=== PATIENT | female | born 1970 | race Caucasian/White ===

== ENCOUNTER 2016-12-28 08:52 | Emergency (ER) | payer BC ==
[2016-12-28 08:58] VITALS: BP 150/84
[2016-12-28] MEDS ORDERED: Pantoprazole 40 MG Vial IVPUSH ONE (09:19)
[2016-12-28] MEDS ORDERED: Sodium Chloride 0.9% 10 ML Syringe FLUSH PRN (09:28)
--- NOTE | 2016-12-28 09:32 | EDM.PDOC ---
[id number] Complaint: blood in stool Time Seen by Provider: 12/28/16 09:00 Source of Information: Reports: Patient - History of Present Illness INITIAL COMMENTS - FREE TEXT/NARRATIVE: Patient is a 46-year-old female who presents to the ER with history of nausea and vomiting she had 1 episodes at 9 PM and went back to the around 3 AM she woke up with diarrhea and bloody stools she has had a bloody stool every hour since that time her last bloody stool was at 8:30 AM she is currently being seen in the ER Onset: Sudden Onset Date: 12/27/16 Duration: Hour(s): Location: Reports: Other Quality: Reports: Other (Cramping from time to time) Improves with: Reports: None Worsens with: Reports: None - Related Data Allergies Allergy/AdvReac Type Severity Reaction Status Date / Time No Known Drug Allergies Allergy Cannot Verified 12/28/16 08:56 Remember Home Meds: Home Meds Anastrozole [Arimidex] 1 mg PO DAILY 10/20/15 [History] Omeprazole 40 mg PO BIDAC #30 cap.cr 12/28/16 [Rx] Past Medical History Immunologic History: Reports: Other (See Below) Other Immunologic History: Current chemotherapy treatment Oncologic (Cancer) History: Reports: Breast - Past Surgical History Female Surgical History: Reports: Breast Biopsy, Oophorectomy Other Female Surgeries/Procedures: Bilateral Oophorectomy. Breast Lumpectomy Oncologic Surgical History: Reports: Biopsy of Breast, Lumpectomy Social & Family History - Tobacco Use Smoking Status *Q: Never Smoker Second Hand Smoke Exposure: No - Recreational Drug Use Recreational Drug Use: No - Living Situation & Occupation Living situation: Reports: with Significant Other, with Family ED ROS GENERAL - Review of Systems Review Of Systems: See Below Constitutional: Reports: Decreased Appetite HEENT: Reports: No Symptoms Respiratory: Reports: No Symptoms Cardiovascular: Reports: No Symptoms Endocrine: Reports: No Symptoms GI/Abdominal: Reports: Abdominal Pain (Cramping from time to time), Bloody Stool , Diarrhea, Vomiting Musculoskeletal: Reports: No Symptoms Skin: Reports: No Symptoms Neurological: Reports: No Symptoms Psychiatric: Reports: No Symptoms ED EXAM, GENERAL - Physical Exam Exam: See Below General Appearance: Alert, WD/WN, No Apparent Distress Ears: Normal External Exam, Normal Canal, Hearing Grossly Normal, Normal TMs Nose: Normal Inspection, Normal Mucosa, No Blood Throat/Mouth: Normal Inspection Head: Atraumatic, Normocephalic Neck: Normal Inspection, Supple, Non-Tender, Full Range of Motion Respiratory/Chest: No Respiratory Distress, Lungs Clear, Normal Breath Sounds, No Accessory Muscle Use, Chest Non-Tender Cardiovascular: Normal Peripheral Pulses, Regular Rate, Rhythm, No Edema, No Gallop, No JVD, No Murmur, No Rub GI/Abdominal: Normal Bowel Sounds (Hyperactive). No: Distended, Guarding, Rebound, Tender (Female) Exam: Deferred Rectal (Female) Exam: Deferred Extremities: Normal Inspection, Normal Range of Motion, Non-Tender, Normal Capillary Refill, No Pedal Edema Neurological: Alert, Oriented, CN II-XII Intact, Normal Cognition, Normal Gait, Normal Reflexes, No Motor/Sensory Deficits Psychiatric: Normal Affect, Normal Mood Skin Exam: Warm, Dry, Intact, Normal Color, No Rash Course - Vital Signs Last Recorded V/S: Last Vital Signs Temp 98.0 F 12/28/16 08:57 Pulse 105 H 12/28/16 08:57 Resp 20 12/28/16 08:57 BP 150/84 H 12/28/16 08:57 Pulse Ox 100 12/28/16 08:57 - Orders/Labs/Meds Orders: Active Orders 24 hr Category Date Time Status Peripheral IV Care [RC] . DIRECTED Care 12/28/16 09:28 Active HEMOGLOBIN [HEME] Stat Lab 12/28/16 12:00 Ordered Sodium Chloride 0.9% [Saline Flush] Med 12/28/16 09:28 Active 10 ml FLUSH ASDIRECTED PRN Peripheral IV Insertion Adult [OM.PC] Routine Oth 12/28/16 09:28 Ordered Medication Orders Sodium Chloride (Saline Flush) 10 ml FLUSH ASDIRECTED PRN PRN Reason: Keep Vein Open Labs: Laboratory Tests 12/28/16 12/28/16 Range/Units 09:15 09:15 WBC 5.8 (4.0-10.2) K/uL RBC 4.57 (3.77-5.09) M/uL Hgb 14.9 D (11.7-15.5) g/dL Hct 41.3 (34.0-46.0) % MCV 90.4 (84.0-98.0) fL MCH 32.6 (28.2-33.3) pg MCHC 36.1 H (31.7-36.0) g/dL RDW 12.3 (11.2-14.1) % Plt Count 153 (150-350) K/uL Neut % (Auto) 71.8 (45.0-80.0) % Lymph % (Auto) 18.2 (10.0-50.0) % Wake % (Auto) 9.2 (2.0-14.0) % Eos % (Auto) 0.5 (0.0-5.0) % Baso % (Auto) 0.3 (0.0-2.0) % Neut # (Auto) 4.13 (1.40-7.00) K/uL Lymph # (Auto) 1.05 (0.50-3.50) K/uL Wake # (Auto) 0.53 (0.00-1.00) K/uL Eos # (Auto) 0.03 (0.00-0.50) K/uL Baso # (Auto) 0.02 (0.00-0.20) K/uL Sodium 142 (136-145) mmol/L Potassium 3.7 (3.5-5.1) mmol/L Chloride 104 (98-107) mmol/L Carbon Dioxide 27.3 (21.0-32.0) mmol/L BUN 13 (7-18) mg/dL Creatinine 0.89 (0.51-1.17) mg/dL Est Cr Clr Drug Dosing 61.80 mL/min Estimated GFR (MDRD) > 60 mL/min Glucose 104 (74-106) mg/dL Calcium 9.3 (8.5-10.1) mg/dL Meds: Medications Generic Name Dose Route Start Last Admin Trade Name Freq PRN Reason Stop Dose Admin Sodium Chloride 10 ml 12/28/16 09:28 Saline Flush FLUSH ASDIRECTED PRN Keep Vein Open Discontinued Medications Generic Name Dose Route Start Last Admin Trade Name Freq PRN Reason Stop Dose Admin Pantoprazole Sodium 40 mg 12/28/16 09:19 12/28/16 09:29 Protonix Iv IVPUSH 12/28/16 09:20 40 mg ONETIME ONE Administration Departure - Departure Time of Disposition: 12:30 Disposition: Home, Self-Care 01 Clinical Impression: Diarrhea, Bloody stool - Discharge Information Prescriptions: Omeprazole 40 mg PO BIDAC #30 cap.cr Referrals: Misbah Turner NP [Primary Care Provider] - (Follow up with Misbah or Dr. Harrington as needed in the clinic. ) Robby Amos MD [Physician] - (Dr. Amos nurse will call you to set up an upper and lower GI scope for Saturday12-31-16 at [facility] in [place], [place] ) Forms: ED Department Discharge Additional Instructions: Dr. Amos nurse will call you to set up an upper and lower GI scope on Saturday in [place] for follow up. If you have any other questions, issues, or concerns , please call the ER and talk to Dr. Cortez. - Problem List & Annotations (1) Bloody stool SNOMED Code(s): 833648480 Code(s): K92.1 - MELENA Status: Acute Current Visit: Yes - Problem List Review Problem List Initiated/Reviewed/Updated: Yes - My Orders Last 24 Hours: My Active Orders 12/28/16 09:28 Peripheral IV Care [RC] . DIRECTED Sodium Chloride 0.9% [Saline Flush] 10 ml FLUSH ASDIRECTED PRN Peripheral IV Insertion Adult [OM.PC] Routine 12/28/16 12:00 HEMOGLOBIN [HEME] Stat - Assessment/Plan Last 24 Hours: My Active Orders 12/28/16 09:28 Peripheral IV Care [RC] . DIRECTED Sodium Chloride 0.9% [Saline Flush] 10 ml FLUSH ASDIRECTED PRN Peripheral IV Insertion Adult [OM.PC] Routine 12/28/16 12:00 HEMOGLOBIN [HEME] Stat Plan: Dr. Amos nurse will call patient to set up an upper and lower GI scope on Saturday in [place] for follow up. Will re check hgb at noon. If patient stable, that will be the plan.
[2016-12-28 09:40] LABS: CHLORIDE,CL 104 mmol/L (98-107); SODIUM,NA 142 mmol/L (136-145)
== END 2016-12-28 12:54 | disposition home or self-care (01) ==
LOC: LL.ED 08:52
DX: K92.1 Melena (principal); R19.7 Diarrhea, unspecified; Z90.722 Acquired absence of ovaries, bilateral; Z79.899 Other long term (current) drug therapy; Z85.3 Personal history of malignant neoplasm of breast
CPT/HCPCS: 36415; 80048; 85018; 85025; 96374; 99283; C9113

== ENCOUNTER 2018-07-16 08:10 | Observation (INO) | payer BC ==
[2018-07-16] MEDS ORDERED: metroNIDAZOLE/Normal Saline 500 MG in Premix Bag 1 BAG IV ONE (08:38)
[2018-07-16] MEDS ORDERED: cefTRIAXone 1 GM in Sodium Chloride 0.9% 100 ML IV ONE (08:38)
[2018-07-16] MEDS ORDERED: Famotidine 20 MG/2 ML SDV IVPUSH ONE (08:38)
[2018-07-16] MEDS ORDERED: Lactated Ringers 1,000 ML IV ONE (08:38)
[2018-07-16] MEDS ORDERED: Ondansetron 4 MG/2 ML SDV IVPUSH ONE (08:38)
[2018-07-16] MEDS ORDERED: Pantoprazole 40 MG Vial IVPUSH ONE (08:38)
--- NOTE | 2018-07-16 08:38 | EDM.PDOC ---
ED HPI GENERAL MEDICAL PROBLEM - General Chief Complaint: Abdominal Pain Stated Complaint: abd pain Time Seen by Provider: 07/16/18 08:30 Source of Information: Reports: Patient, Old Records ([facility] chart/EMR including [place] EMR), Other ([place] EMR) History Limitations: Reports: No Limitations - History of Present Illness INITIAL COMMENTS - FREE TEXT/NARRATIVE: The patient drove herself to the emergency room via private automobile for evaluation of progressive moderate gross hematochezia and diarrhea with stools on an hourly basis since 11 PM. She did have some previous nausea and dry heaves with no true emesis. Her hematochezia did stop between 4:30?7 AM however soon returned later this morning. Note that the patient did just recently returned from [place] on 07/13 with medication of about one week. She denies any known exposure to infection, food poisoning, etc. She has not received her influenza booster this year. She denies any pain or nausea at this time with previous 9/10 diffuse abdominal cramping. No recent history of heartburn, melena , or any food intolerance, including fatty foods, etc.. The patient also denies any gross hematuria, colic, or other UTI symptoms. The patient denies any chest pain/pressure, heart flutter, dizziness, orthostasis, orthopnea, diaphoresis, paresthesias, recent decreased exercise tolerance, or any other anginal-type symptoms. The patient also denies any recent fever, cough, wheezing, dyspnea, etc.. She has not taken any medications for her above symptoms to this point. Onset: Gradual Onset Date: 07/15/18 Onset Time: 23:00 Duration: Getting Worse, Intermittent Location: Reports: Abdomen. Denies: Head, Face, Chest, Back, Pelvis, Upper Extremity, Left, Upper Extremity, Right, Lower Extremity, Left, Lower Extremity , Right, Radiates to Quality: Reports: Same as Previous Episode, Other (Cramping) Severity: Severe Improves with: Reports: None Worsens with: Reports: None Context: Reports: Other (As above). Denies: Sick Contact, Trauma Associated Symptoms: Reports: Nausea/Vomiting. 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 Denies: Cataract, Glaucoma, Hard of Hearing, Impaired Vision, Macular Degeneration, Otitis Media, Retinal Detachment , Sinusitis Cardiovascular History: Reports: High Cholesterol, Other (See Below). Denies: Afib, Aneurysm, Arrhythmia, Blood Clots/VTE/DVT, CAD, Heart Murmur, Hypertension , PR, PVD, Syncope Other Cardiovascular History: Mild hyperlipidemia with no current medical therapy required. Respiratory History: Reports: Intubation, Previous. Denies: Asthma, Bronchitis , Recurrent, COPD, Intubation, Difficult, PE, Pneumonia, Recurrent, Pneumothorax , Sleep Apnea, TB Gastrointestinal History: Reports: GERD, GI Bleed, Other (See Below). Denies: Bowel Obstruction, Celiac Disease, Cholelithiasis, Chronic Constipation, Chronic Diarrhea, Colon Polyp, Fecal Incontinence, Gastritis, Hepatitis, Hiatal Hernia, Inflammatory Bowel Disease, Irritable Bowel Syndrome, Jaundice, Pancreatitis, PUD Other Gastrointestinal History: GI bleed secondary to mild colitis of unknown etiology on 12/28/16 with workup as below. Genitourinary History: Reports: None. 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 Denies: Endometriosis, Spontaneous : 3 Para: 3 LMP (Approximate): Other (See Below) Other ELECTRICAL SOFTWARE ENGINEER History: Amenorrhea since chemotherapy. Previous ruptured right ovarian cyst at time of appendicitis as below. Right Sided breast cancer as below. Musculoskeletal History: Reports: Arthritis, Osteoarthritis, Osteoporosis, Other (See Below). Denies: Amputation, Back Pain, Chronic, Fracture, Fibromyalgia, Gout, Neck Pain, Chronic, RA, SLE Other Musculoskeletal History: Osteopenia secondary to chemotherapy. Neurological History: Reports: None. Denies: Cerebral Aneurysms, Concussion, CVA, Headaches, Chronic, Head Trauma, Migraines, MS, Neuropathy, Diabetic, Neuropathy, Peripheral, Parkinson's, Seizure, TIA Psychiatric History: Reports: Anxiety, Depression. Denies: Abuse, Victim of, ADD, ADHD, Addiction, Psych Hospitalization(s), PTSD, Suicide Attempt, Suicidal Ideation Endocrine/Metabolic History: Reports: Obesity/BMI 30+, Osteopenia, Osteoporosis. Denies: Diabetes, Gestational, Diabetes, Type I, Diabetes, Type II, Diabetes Mellitus, Type 3c, Hypothyroidism, IDDM Hematologic History: Reports: Other (See Below). Denies: Anemia, Blood Transfusion(s), Iron Deficiency Other Hematologic History: Neutropenia secondary to chemotherapy. Immunologic History: Reports: Immunosuppression, Other (See Below). Denies: AIDS, HIV, SLE Other Immunologic History: Current Arimidex chemotherapy previous radiation and chemotherapy for her breast cancer. Oncologic (Cancer) History: Reports: Breast, Other (See Below). Denies: Basal Cell Carcinoma, Cervix, Colon, Hodgkin's Lymphoma, Leukemia, Lymphoma, Malignant Melanoma, Metastatic, Non-Hodgkin's Lymphoma, Ovarian, Squamous Cell Carcinoma, Uterine Other Oncologic History: Right-sided stage I invasive ductal breast cancer estrogen receptor positive and HER 2 positive with subsequent chemotherapy and radiation therapy with completion in early 2017. Dermatologic History: Reports: None. Denies: Eczema, Psoriasis - Infectious Disease History Infectious Disease History: Reports: Chicken Pox, Scarlet Fever. Denies: C- Difficile, Measles, Meningitis, Mononucleosis, MRSA, Mumps, Pertussis (Whooping Cough), Rheumatic Fever, Rubella, Shingles, VRE - Past Surgical History Head Surgeries/Procedures: Reports: None HEENT Surgical History: Reports: Adenoidectomy, Oral Surgery, Tonsillectomy, Other (See Below). Denies: Cataract Surgery, Eye Surgery, Laser Surgery, LASIK , Myringotomy w Tube(s), Naso-Sinus Surgery Other HEENT Surgeries/Procedures: Tonsillectomy and adenoidectomy at age 17 with re-cauterization required. [place] teeth extraction 4 at about age 15. Cardiovascular Surgical History: Reports: None. Denies: Varicose Respiratory Surgical History: Reports: None. Denies: Thoracentesis GI Surgical History: Reports: Appendectomy, Colonoscopy, EGD, Other (See Below) . Denies: Cholecystectomy, Hernia, Abdominal, Hernia, Inguinal, Hernia Repair/ Other, Polypectomy Other GI Surgeries/Procedures: Appendectomy at age 38. EGD and colonoscopy on with mild colitis and secondary lower GI bleed as above. Female Surgical History: Reports: Breast Biopsy, Salpingo-Oophorectomy. Denies: Section, D&C, Hysterectomy, Tubal Ligation Other Female Surgeries/Procedures: Diagnostic laparoscopic abdominal/pelvic examination with bilateral salpingo-oophorectomy and concomitant right breast lumpectomy and sentinel lymph node biopsies on 07/29/15. Endocrine Surgical History: Reports: None. Denies: Thyroid Biopsy Neurological Surgical History: Reports: None. Denies: C-Spine, Discectomy, Laminectomy, Lumbar Spine, Sacral Spine, Spinal Fusion, Thoracic Spine, Vertebroplasty Musculoskeletal Surgical History: Reports: None. Denies: Arthroscopic Procedure , Carpal Tunnel, Ganglion Cyst, Joint Replacement, ORIF, Shoulder Surgery Oncologic Surgical History: Reports: Biopsy of Breast, Bone Marrow Aspiration, Lumpectomy, Other (See Below) Other Oncologic Surgeries/Procedures: Bone marrow needle aspiration and biopsy including flow cytometry on 08/06/16. Right breast biopsy on 03/05/18. Otherwise right-sided lumpectomy and laparoscopic abdominal and pelvic evaluations on 07/28 as above. Dermatological Surgical History: Reports: Skin Biopsy, Other (See Below) Other Dermatological Surgeries/Procedures: Excision of benign chest wall inclusion cyst on 12/29/15. - Past Imaging History Past Imaging History: Reports: Cardiac Echo (Last echocardiogram on 02/02/16 with ejection fraction of 55% with previous evaluations on recent Y416 on ), CAT Scan (CT of the sinuses on 07/25/07), DEXA Scan (DEXA scan on 04/01/17 with complete total body DEXA scan on 03/22/15.), Mammogram (Last mammogram on ), MRI (MRI of the chest on 12/12/15.), Ultrasound (Pelvic ultrasound on and 05/16/10. Right breast ultrasounds on 03/05/18, 09/03/17, and 02/23/15. ), Venous Doppler (Doppler studies of the left arm on 05/10/15.) Social & Family History - Family History HEENT: Reports: None. Denies: Glaucoma, Macular Degeneration, Retinal Detachment Cardiac: Reports: None. Denies: Afib, Aneurysm, Arrhythmia, Blood Clots/VTE/DVT , CAD, Heart Murmur, High Cholesterol, Hypertension, PR, PVD/COD, Syncope Respiratory: Reports: None. Denies: Asthma, COPD, PE, Pneumothorax, Sleep Apnea GI: Reports: None. Denies: Celiac Disease, Cholelithiasis, Colon Polyps, GERD, GI bleed, Inflammatory Bowel Disease, Irritable Bowel Syndrome : Reports: None. Denies: Renal Calculus, Renal Disease/Insufficiency OBGYN: Reports: Recurrent Spontaneous . Denies: Endometriosis Other OBGYN Family History: Mother with recurrent SABs. Musculoskeletal: Reports: None. Denies: Arthritis, Gout, Osteoarthritis, RA, SLE Neurological: Reports: None. Denies: Alzheimers Disease, Cerebral Aneurysms, CVA, Dementia, Migraines, MS, Parkinson's, Seizure, TIA Psychiatric: Reports: Anxiety, Depression, Other (See Below). Denies: Abuse, Victim of, ADD, ADHD, Psych Hospitalization(s), PTSD, Suicide Attempt Other Psychiatric Family History: Anxiety depression disorder in patient's father Endocrine/Metabolic: Reports: None. Denies: Diabetes, Gestational, Diabetes, Type I, Diabetes, type II, Diabetes Mellitus, Type 3c, Hypothyroidism, IDDM Hematologic: Reports: None. Denies: Anemia, SLE Immunologic: Reports: None. Denies: AIDS, HIV, SLE Dermatologic: Reports: None. Denies: Eczema, Psoriasis Oncologic: Reports: Breast, Metastatic, Other (See Below). Denies: Cervix, Colon, Hodgkin's Lymphoma, Leukemia, Lymphoma, Non-Hodgkin's Lymphoma Other Oncologic Family History: Mother with fatal metastatic lung cancer at age 50 with history of tobacco use however possible suspicion of breast cancer. Maternal grandfather with fatal esophageal cancer in his 80s of history of tobacco use. Maternal retinoblastoma fatal at age 9. - Tobacco Use Smoking Status *Q: Never Smoker Tobacco Use Within Last Twelve Months: No Used Tobacco, but Quit: No Smoking Cessation Information Provided To Patient: Yes Second Hand Smoke Exposure: Yes - Caffeine Use Caffeine Use: Reports: Soda (1 soda per month). Denies: Coffee, Energy Drinks, Tea - Alcohol Use Alcohol Use History: Yes Days Per Week of Alcohol Use: 3 Number of Drinks Per Day: 1 Number of Drinks Per Day Comment: Usually wine. No previous DWIs, problems with alcohol abuse, etc. Total Drinks Per Week: 3 Alcohol Use in Last Twelve Months: Yes Alcohol Use Frequency: Weekly - Recreational Drug Use Recreational Drug Use: No Drug Use in Last 12 Months: No Recreational Drug Type: Denies: Amphetamines (Speed), Cocaine, Heroin, Inhalants (Glues, Solvents, Aerosols), LSD (Acid), Marijuana/Hashish, Methamphetamine, Morphine - Sexual History Sexual History: Reports: Sexually Active - Living Situation & Occupation Living situation: Reports: (1993. 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 ED EXAM, GI/ABD - Physical Exam Exam: See Below Exam Limited By: No Limitations General Appearance: Alert, WD/WN, No Apparent Distress. No: Anxious Eyes: Bilateral: Normal Appearance (No nystagmus), EOMI (PERRLA) Ears: Normal External Exam, Normal Canal, Hearing Grossly Normal, Normal TMs Nose: Normal Inspection, Normal Mucosa, No Blood Throat/Mouth: Normal Inspection, Normal Lips, Normal Teeth, Normal Gums, Normal Oropharynx, Normal Voice, No Airway Compromise. No: Dysphagia, Perioral Cyanosis Head: Atraumatic, Normocephalic. No: Facial Swelling, Facial Tenderness, Sinus Tenderness Neck: Normal Inspection, Supple, Non-Tender, Full Range of Motion. No: Carotid Bruit, Lymphadenopathy (L), Lymphadenopathy (R), Thyromegaly Respiratory/Chest: No Respiratory Distress, Lungs Clear, Normal Breath Sounds, No Accessory Muscle Use, Chest Non-Tender. No: Pleural Rub, Retractions Cardiovascular: Normal Peripheral Pulses, Regular Rate, Rhythm, No Edema, No Gallop, No JVD, No Murmur, No Rub, Tachycardia (Resolved tachycardia time of my exam). No: Gallop/S3, Gallop/S4, Friction Rub GI/Abdominal Exam: Normal Bowel Sounds, Soft, Non-Tender, No Organomegaly, No Distention, No Abnormal Bruit, No Mass, Pelvis Stable. No: Guarding, Rigid, Rebound, Tender (Female) Exam: Deferred Rectal (Female) Exam: Normal Rectal Tone, Bloody Stool, Heme + Stool (With brown stool however mild gross hematochezia with no evidence of rectal fissure, significant hemorrhoidal bleeding, etc. by rectal speculum exam), Hemorrhoids ( Grade 2 internal/external hemorrhoids). No: Black Stool, Decreased Rectal Tone , Fecal Impaction, Perirectal Abscess, Rectal Fissure, Tenderness (No Zoran space tenderness) Back Exam: Normal Inspection, Full Range of Motion. No: CVA Tenderness (L), CVA Tenderness (R), Muscle Spasm Extremities: Normal Inspection, Normal Range of Motion, Non-Tender, No Pedal Edema, Normal Capillary Refill. No: Saw's Sign Neurological: Alert, Oriented, CN II-XII Intact, Normal Cognition, Normal Gait, Normal Reflexes (Negative Babinski's), No Motor/Sensory Deficits Psychiatric: Normal Affect, Normal Mood Skin Exam: Warm, Dry, Intact, Normal Color, No Rash. No: Diaphoretic, Ecchymosis, Jaundice, Pallor, Petechiae, Wound/Incision Lymphatic: No Adenopathy Course - Vital Signs Last Recorded V/S: Last Vital Signs Temp 36.2 C 07/16/18 08:21 Pulse 79 07/16/18 09:45 Resp 18 07/16/18 09:45 BP 119/75 07/16/18 09:45 Pulse Ox 100 07/16/18 09:45 Vital Signs - 24 hr 07/16/18 07/16/18 08:21 09:45 Temperature [ 36.2 C Temporal] Pulse, 107 H 79 Peripheral [ Pulse Oximetry] Respiratory 20 18 Rate Blood Pressure 129/79 119/75 [Right Upper Arm] O2 Sat by Pulse 98 100 Oximetry - Orders/Labs/Meds Orders: Active Orders 24 hr Category Date Time Status Peripheral IV Care [RC] . DIRECTED Care 07/16/18 08:39 Active Peripheral IV Care [RC] . DIRECTED Care 07/16/18 08:44 Active Nothing Per Oral Diet [DIET] Diet 07/16/18 Breakfast Active Abdomen Pelvis w Cont [CT] Stat Exams 07/16/18 08:39 Taken Abdomen Series w Chest 1V [CR] Stat Exams 07/16/18 08:39 Taken H PYLORI STOOL ANTIGEN [MREF] Urgent Lab 07/16/18 08:39 Ordered Sodium Chloride 0.9% [Saline Flush] Med 07/16/18 08:38 Active 10 ml FLUSH ASDIRECTED PRN Sodium Chloride 0.9% [Saline Flush] Med 07/16/18 08:44 Active 10 ml FLUSH ASDIRECTED PRN Obtain Past Medical Record [OM.PC] Urgent Oth 07/16/18 08:39 Active Peripheral IV Insertion Adult [OM.PC] Routine Oth 07/16/18 08:44 Ordered Peripheral IV Insertion Adult [OM.PC] Stat Oth 07/16/18 08:39 Ordered Resuscitation Status Stat Resus Stat 07/16/18 08:38 Ordered Medication Orders Sodium Chloride (Saline Flush) 10 ml FLUSH ASDIRECTED PRN PRN Reason: Keep Vein Open Last Admin: 07/16/18 09:35 Dose: 10 ml Sodium Chloride (Saline Flush) 10 ml FLUSH ASDIRECTED PRN PRN Reason: Keep Vein Open Last Admin: 07/16/18 09:36 Dose: 10 ml Labs: Laboratory Tests 07/16/18 07/16/18 07/16/18 Range/Units 08:39 08:40 08:40 WBC 7.2 (4.0-10.2) K/uL RBC 4.41 (3.77-5.09) M/uL Hgb 14.5 (11.7-15.5) g/dL Hct 40.8 (34.0-46.0) % MCV 92.5 (84.0-98.0) fL MCH 32.9 (28.2-33.3) pg MCHC 35.5 (31.7-36.0) g/dL RDW 12.3 (11.2-14.1) % Plt Count 116 L (150-350) K/uL Neut % (Auto) 85.5 H (45.0-80.0) % Lymph % (Auto) 5.5 L (10.0-50.0) % Crook % (Auto) 8.4 (2.0-14.0) % Eos % (Auto) 0.6 (0.0-5.0) % Baso % (Auto) 0.0 (0.0-2.0) % Neut # (Auto) 6.19 (1.40-7.00) K/uL Lymph # (Auto) 0.40 L (0.50-3.50) K/uL [place] # (Auto) 0.61 (0.00-1.00) K/uL Eos # (Auto) 0.04 (0.00-0.50) K/uL Baso # (Auto) 0.00 (0.00-0.20) K/uL PT 10.0 (9.5-12.0) SEC INR 0.9 APTT 23.4 (21.0-31.3) SEC Sodium (136-145) mmol/L Potassium (3.5-5.1) mmol/L Chloride (98-107) mmol/L Carbon Dioxide (21.0-32.0) mmol/L BUN (7-18) mg/dL Creatinine (0.51-1.17) mg/dL Est Cr Clr Drug Dosing mL/min Estimated GFR (MDRD) mL/min Glucose (74-106) mg/dL Lactic Acid (0.4-2.0) mmol/L Uric Acid (2.6-7.2) mg/dL Calcium (8.5-10.1) mg/dL Magnesium (1.8-2.4) mg/dL Total Bilirubin (0.2-1.0) mg/dL AST (15-37) U/L ALT (12-78) U/L Alkaline Phosphatase (46-116) IU/L Total Protein (6.4-8.2) g/dL Albumin (3.4-5.0) g/dL Amylase 57 (25-115) U/L Lipase (73-393) U/L 07/16/18 07/16/18 Range/Units 08:40 08:40 WBC (4.0-10.2) K/uL RBC (3.77-5.09) M/uL Hgb (11.7-15.5) g/dL Hct (34.0-46.0) % MCV (84.0-98.0) fL MCH (28.2-33.3) pg MCHC (31.7-36.0) g/dL RDW (11.2-14.1) % Plt Count (150-350) K/uL Neut % (Auto) (45.0-80.0) % Lymph % (Auto) (10.0-50.0) % Crook % (Auto) (2.0-14.0) % Eos % (Auto) (0.0-5.0) % Baso % (Auto) (0.0-2.0) % Neut # (Auto) (1.40-7.00) K/uL Lymph # (Auto) (0.50-3.50) K/uL [place] # (Auto) (0.00-1.00) K/uL Eos # (Auto) (0.00-0.50) K/uL Baso # (Auto) (0.00-0.20) K/uL PT (9.5-12.0) SEC INR APTT (21.0-31.3) SEC Sodium 139 (136-145) mmol/L Potassium 4.2 (3.5-5.1) mmol/L Chloride 102 (98-107) mmol/L Carbon Dioxide 25.1 (21.0-32.0) mmol/L BUN 17 (7-18) mg/dL Creatinine 0.81 (0.51-1.17) mg/dL Est Cr Clr Drug Dosing 69.50 mL/min Estimated GFR (MDRD) > 60 mL/min Glucose 116 H (74-106) mg/dL Lactic Acid 1.4 (0.4-2.0) mmol/L Uric Acid 4.3 (2.6-7.2) mg/dL Calcium 9.1 (8.5-10.1) mg/dL Magnesium 1.9 (1.8-2.4) mg/dL Total Bilirubin 0.9 (0.2-1.0) mg/dL AST 31 (15-37) U/L ALT 56 (12-78) U/L Alkaline Phosphatase 120 H (46-116) IU/L Total Protein 7.5 (6.4-8.2) g/dL Albumin 4.3 (3.4-5.0) g/dL Amylase (25-115) U/L Lipase 168 (73-393) U/L Microbiology 07/16/18 08:45 Stool Occult Blood (REINA) - Final Stool / Feces Hemoccult positive Meds: Medications Generic Name Dose Route Start Last Admin Trade Name Freq PRN Reason Stop Dose Admin Sodium Chloride 10 ml 07/16/18 08:38 02/27/19 09:35 Saline Flush FLUSH 10 ml ASDIRECTED PRN Administration Keep Vein Open Sodium Chloride 10 ml 07/16/18 08:44 07/16/18 09:36 Saline Flush FLUSH 10 ml ASDIRECTED PRN Administration Keep Vein Open Discontinued Medications Generic Name Dose Route Start Last Admin Trade Name Freq PRN Reason Stop Dose Admin Famotidine 40 mg 07/16/18 08:38 07/16/18 09:39 Pepcid IVPUSH 07/16/18 08:39 40 mg ONETIME ONE Administration Ceftriaxone Sodium 1 gm/ 100 mls @ 200 mls/hr 07/16/18 08:38 07/16/18 09:32 Sodium Chloride IV 07/16/18 09:07 200 mls/hr ONETIME ONE Administration Lactated Ringer's 1,000 mls @ 999 mls/hr 07/16/18 08:38 07/16/18 09:36 Ringers, Lactated IV 07/16/18 09:38 999 mls/hr .BOLUS ONE Administration Metronidazole 500 mg/ Premix 100 mls @ 100 mls/hr 07/16/18 08:38 07/16/18 09: 40 IV 07/16/18 09:37 100 mls/hr ONETIME ONE Administration Iopamidol 100 ml 07/16/18 09:30 07/16/18 09:16 Isovue-300 (61%) IVPUSH 07/16/18 09:31 100 ml ONETIME ONE Administration Ondansetron HCl 4 mg 07/16/18 08:38 07/16/18 09:41 Zofran IVPUSH 07/16/18 08:39 Not Given ONETIME ONE Pantoprazole Sodium 40 mg 07/16/18 08:38 07/16/18 09:35 Protonix Iv IVPUSH 07/16/18 08:39 40 mg ONETIME ONE Administration - Radiology Interpretation Free Text/Narrative:: Acute abdominal x-rays shows mild nonspecific bowel gaseous pattern and moderate stool with no free air, fluid levels, ileus, obstruction, cardiomegaly , CHF, pulmonary infiltrates, pneumothorax, etc. Note surgical clips in the right chest wall region consistent with previous breast cancer surgery as above. Telephone consultation at 09:55 AM with the radiology department at [facility]. Preliminary verbal report shows no evidence of acute abnormalities or etiology of her probable lower GI bleed. Final report received prior to admission. Departure - Departure Time of Disposition: 10:45 Disposition: Refer to Observation Condition: Good Clinical Impression: Lower GI bleed, Peptic reflux disease, Mixed anxiety depressive disorder Breast cancer Qualifiers: Breast location: upper inner quadrant of breast Estrogen receptor status: positive Patient sex: female Laterality: right Qualified Code(s): C50.211 - Malignant neoplasm of upper-inner quadrant of right female breast Hyperlipidemia Qualifiers: Hyperlipidemia type: mixed hyperlipidemia Qualified Code(s): E78.2 - Mixed hyperlipidemia - Discharge Information *PRESCRIPTION DRUG MONITORING PROGRAM REVIEWED*: Not Applicable *COPY OF PRESCRIPTION DRUG MONITORING REPORT IN PATIENT JONATAN: Not Applicable - Problem List & Annotations (1) Lower GI bleed SNOMED Code(s): 92311981 Code(s): K92.2 - GASTROINTESTINAL HEMORRHAGE, UNSPECIFIED Status: Acute Priority: High Current Visit: Yes Onset Date: 07/16/18 Annotation/Comment: : Probable lower GI bleed of uncertain etiology however cannot rule out possible colitis secondary to recent travel to [place] as above. Note the patient did have similar symptoms in 2017 with mild colitis by EGD and colonoscopy at that time. Vital signs and clinical exam are stable at time of admission. Various therapeutic options were discussed with the patient, who does agree to placement in this facility in observation status and planned repeat EGD and colonoscopy tomorrow. Abdominal assessments with vitals. No significant hematochezia during emergency room care with CBC to be repeated in about 3 hours and repeat blood work in the a.m. Standard bowel prep for EGD and colonoscopy as above. Further GI workup, etc. depending on clinical course. Note history of breast cancer as above. Note IV Rocephin and IV Flagyl initiated in the emergency room as GI prophylaxis. Significant anemia or leukocytosis at this time. (2) Peptic reflux disease SNOMED Code(s): 346117842 Code(s): K21.9 - GASTRO-ESOPHAGEAL REFLUX DISEASE WITHOUT ESOPHAGITIS Status: Chronic Priority: Medium Current Visit: Yes Annotation/Comment:: High-dose IV Pepcid and IV Protonix given as GI prophylaxis. Patient has not had any problems with her GERD recently with no current medications required. (3) Breast cancer SNOMED Code(s): 293719604 Code(s): C50.919 - MALIGNANT NEOPLASM OF UNSP SITE OF UNSPECIFIED FEMALE BREAST Status: Ruled-out Priority: Medium Current Visit: Yes Annotation/ Comment:: History of breast cancer as above with no previous metastases. EGD and colonoscopy as above as precautionary measure and as per recommendations from radiologist. Note CT scan results as above. Note current Arimdex therapy with completion of chemotherapy and radiation therapy as above. No evidence of recurrence by patient's monthly self breast examinations with patient closely followed by the breast clinic at [facility] as above. Qualifiers: Breast location: upper inner quadrant of breast Estrogen receptor status: positive Patient sex: female Laterality: right Qualified Code(s): C50.211 - Malignant neoplasm of upper-inner quadrant of right female breast; Z17.0 - Estrogen receptor positive status [ER+] (4) Mixed anxiety depressive disorder SNOMED Code(s): 134933991 Code(s): F41.8 - OTHER SPECIFIED ANXIETY DISORDERS Status: Chronic Priority: Medium Current Visit: Yes Annotation/Comment:: Stable by history (5) Hyperlipidemia SNOMED Code(s): 83060624 Code(s): E78.5 - HYPERLIPIDEMIA, UNSPECIFIED Status: Chronic Priority: Medium Current Visit: Yes Annotation/Comment:: Diet-controlled by patient history. Qualifiers: Hyperlipidemia type: mixed hyperlipidemia Qualified Code(s): E78.2 - Mixed hyperlipidemia - Problem List Review Problem List Initiated/Reviewed/Updated: Yes - My Orders Last 24 Hours: My Active Orders 07/16/18 08:38 Sodium Chloride 0.9% [Saline Flush] 10 ml FLUSH ASDIRECTED PRN Resuscitation Status Stat 07/16/18 08:39 Peripheral IV Care [RC] . DIRECTED Abdomen Pelvis w Cont [CT] Stat Abdomen Series w Chest 1V [CR] Stat H PYLORI STOOL ANTIGEN [MREF] Urgent Obtain Past Medical Record [OM.PC] Urgent Peripheral IV Insertion Adult [OM.PC] Stat 07/16/18 08:44 Peripheral IV Care [RC] . DIRECTED Sodium Chloride 0.9% [Saline Flush] 10 ml FLUSH ASDIRECTED PRN Peripheral IV Insertion Adult [OM.PC] Routine 07/16/18 Breakfast Nothing Per Oral Diet [DIET] - Assessment/Plan Admission H&P: Please use this note as an admission H&P Last 24 Hours: My Active Orders 07/16/18 08:38 Sodium Chloride 0.9% [Saline Flush] 10 ml FLUSH ASDIRECTED PRN Resuscitation Status Stat 07/16/18 08:39 Peripheral IV Care [RC] . DIRECTED Abdomen Pelvis w Cont [CT] Stat Abdomen Series w Chest 1V [CR] Stat H PYLORI STOOL ANTIGEN [MREF] Urgent Obtain Past Medical Record [OM.PC] Urgent Peripheral IV Insertion Adult [OM.PC] Stat 07/16/18 08:44 Peripheral IV Care [RC] . DIRECTED Sodium Chloride 0.9% [Saline Flush] 10 ml FLUSH ASDIRECTED PRN Peripheral IV Insertion Adult [OM.PC] Routine 07/16/18 Breakfast Nothing Per Oral Diet [DIET] Assessment:: As above Plan: As above. Extensive precautions were given to the patient, who is in agreement with the treatment plan. The patient's condition is stable enough for observation status and general supervision.
[2018-07-16] MEDS ORDERED: Sodium Chloride 0.9% 10 ML Syringe FLUSH PRN (08:44)
[2018-07-16 08:59] LABS: CHLORIDE,CL 102 mmol/L (98-107); SODIUM,NA 139 mmol/L (136-145)
[2018-07-16] MEDS ORDERED: Iopamidol 612 MG/ML 100 ML Bottle IVPUSH ONE (09:30)
[2018-07-16] MEDS: Sodium Chloride 0.9% 10 ML Syringe FLUSH PRN ×3 (09:35→19:16)
[2018-07-16] MEDS ORDERED: Bisacodyl 5 MG Tab PO ONE (12:00)
[2018-07-16] MEDS: Polyethylene Glycol 3350 Powder 238 GM Bot PO SCH ×10 (12:45→16:08)
[2018-07-16] MEDS: Potassium Chloride 20 MEQ Tab.ER PO SCH ×2 (12:46→17:22)
[2018-07-16] MEDS: Lactated Ringers 1,000 ML IV SCH (12:47)
[2018-07-16] MEDS: Acetaminophen 325 MG Tab PO PRN ×2 (12:50→19:14)
[2018-07-16] MEDS ORDERED: Ondansetron 4 MG/2 ML SDV IVPUSH PRN (15:00)
[2018-07-16] MEDS ORDERED: Temazepam 15 MG Cap PO PRN (20:00)
[2018-07-16] MEDS: cefTRIAXone 1 GM in Sodium Chloride 0.9% 100 ML IV SCH (20:14)
[2018-07-16] MEDS: Pantoprazole 40 MG Vial IVPUSH SCH (20:14)
[2018-07-16] MEDS: Sodium Chloride 0.9% 10 ML Syringe FLUSH SCH ×2 (20:57)
[2018-07-16] MEDS: metroNIDAZOLE/Normal Saline 500 MG in Premix Bag 1 BAG IV SCH (21:00)
[2018-07-17] MEDS: Lactated Ringers 1,000 ML IV SCH ×3 (00:27→12:24)
[2018-07-17] MEDS: metroNIDAZOLE/Normal Saline 500 MG in Premix Bag 1 BAG IV SCH ×3 (05:18→21:05)
[2018-07-17 08:22] LABS: CHLORIDE,CL 107 mmol/L (98-107); SODIUM,NA 141 mmol/L (136-145)
--- NOTE | 2018-07-17 08:26 | PCM.PN ---
- General Info Date of Service: 07/17/18 Admission Dx/Problem (Free Text): Lower GI bleed Functional Status: Reports: Pain Controlled, Tolerating Diet, Ambulating, Urinating. Denies: New Symptoms, Incentive Spirometry Pain Score: 0 - Review of Systems General: Reports: No Symptoms. Denies: Fever, Weakness, Fatigue, Malaise, Chills, Night Sweats, Appetite (Appetite good) HEENT: Reports: No Symptoms. Denies: Ear Pain, Eye Pain, Headaches, Post Nasal Drip, Sinus Congestion, Sore Throat, Rhinitis, Visual Changes Pulmonary: Reports: No Symptoms. Denies: Shortness of Breath, Pleuritic Chest Pain, Cough, Sputum, Hemoptysis, Wheezing Cardiovascular: Reports: No Symptoms. Denies: Chest Pain, Palpitations, Dyspnea on Exertion, Orthopnea, Edema, Lightheadedness Gastrointestinal: Reports: Diarrhea (From bowel preparation). Denies: Abdominal Pain, Constipation, Decreased Appetite, Difficulty Swallowing, Flatus , Hematochezia, Melena, Nausea, Vomiting Genitourinary: Reports: No Symptoms. Denies: Dysuria, Frequency, Burning, Pain , Urgency, Hematuria, Flank Pain Musculoskeletal: Reports: No Symptoms. Denies: Neck Pain, Shoulder Pain, Arm Pain, Back Pain, Leg Pain Skin: Reports: No Symptoms. Denies: Diaphoresis, Bruising Neurological: Reports: No Symptoms. Denies: Confusion, Numbness, Paresthesia, Tingling, Weakness Psychiatric: Reports: No Symptoms. Denies: Confusion, Depression, Anxiety, Agitation - Patient Data Vitals - Most Recent: Last Vital Signs Temp 36.8 C 07/17/18 04:00 Pulse 62 07/17/18 04:00 Resp 16 07/17/18 04:00 BP 110/70 07/17/18 04:00 Pulse Ox 96 07/17/18 04:00 Vital Signs - 24 hr 07/16/18 07/16/18 07/16/18 09:45 11:16 11:19 Temperature [ Oral] Temperature [ Temporal] Pulse, 79 Peripheral [ Pulse Oximetry] Respiratory 18 Rate Blood Pressure [Left Upper Arm ] Blood Pressure 119/75 [Right Upper Arm] O2 Sat by Pulse 100 100 100 Oximetry 07/16/18 07/16/18 07/16/18 12:00 16:00 20:00 Temperature [ 36.8 C 36.6 C Oral] Temperature [ 36.3 C Temporal] Pulse, 67 78 73 Peripheral [ Pulse Oximetry] Respiratory 17 20 16 Rate Blood Pressure 124/61 139/84 123/76 [Left Upper Arm ] Blood Pressure [Right Upper Arm] O2 Sat by Pulse 100 98 98 Oximetry 07/17/18 07/17/18 00:00 04:00 Temperature [ 36.6 C 36.8 C Oral] Temperature [ Temporal] Pulse, 75 62 Peripheral [ Pulse Oximetry] Respiratory 16 16 Rate Blood Pressure 111/62 110/70 [Left Upper Arm ] Blood Pressure [Right Upper Arm] O2 Sat by Pulse 96 96 Oximetry Weight - Most Recent: 70.216 kg I&O - Last 24 Hours: Intake & Output 07/16/18 07/17/18 07/17/18 22:59 06:59 14:59 Intake Total 2655 1134 Output Total 850 350 Balance 1805 784 Imaging Impressions - Last 24 Hours: sfdc solution architect shows normal sinus rhythm with heart rate in the 60s to 70s with no ectopy or arrhythmia. Lab Results Last 24 Hours: Laboratory Results - last 24 hr 07/16/18 07/16/18 07/16/18 Range/Units 08:39 08:40 08:40 WBC 7.2 (4.0-10.2) K/uL RBC 4.41 (3.77-5.09) M/uL Hgb 14.5 (11.7-15.5) g/dL Hct 40.8 (34.0-46.0) % MCV 92.5 (84.0-98.0) fL MCH 32.9 (28.2-33.3) pg MCHC 35.5 (31.7-36.0) g/dL RDW 12.3 (11.2-14.1) % Plt Count 116 L (150-350) K/uL Neut % (Auto) 85.5 H (45.0-80.0) % Lymph % (Auto) 5.5 L (10.0-50.0) % [place] % (Auto) 8.4 (2.0-14.0) % Eos % (Auto) 0.6 (0.0-5.0) % Baso % (Auto) 0.0 (0.0-2.0) % Neut # (Auto) 6.19 (1.40-7.00) K/uL Lymph # (Auto) 0.40 L (0.50-3.50) K/uL [place] # (Auto) 0.61 (0.00-1.00) K/uL Eos # (Auto) 0.04 (0.00-0.50) K/uL Baso # (Auto) 0.00 (0.00-0.20) K/uL PT 10.0 (9.5-12.0) SEC INR 0.9 APTT 23.4 (21.0-31.3) SEC Sodium (136-145) mmol/L Potassium (3.5-5.1) mmol/L Chloride (98-107) mmol/L Carbon Dioxide (21.0-32.0) mmol/L BUN (7-18) mg/dL Creatinine (0.51-1.17) mg/dL Est Cr Clr Drug Dosing mL/min Estimated GFR (MDRD) mL/min Glucose (74-106) mg/dL Lactic Acid (0.4-2.0) mmol/L Uric Acid (2.6-7.2) mg/dL Calcium (8.5-10.1) mg/dL Magnesium (1.8-2.4) mg/dL Total Bilirubin (0.2-1.0) mg/dL AST (15-37) U/L ALT (12-78) U/L Alkaline Phosphatase (46-116) IU/L Total Protein (6.4-8.2) g/dL Albumin (3.4-5.0) g/dL Amylase 57 (25-115) U/L Lipase (73-393) U/L Specimen Type Urine Color Urine Appearance Urine pH (5.0-9.0) Ur Specific [place] (1.005-1.030) Urine Protein (NEGATIVE) mg/dL Urine Glucose (UA) (NEGATIVE) mg/dL Urine Ketones (NEGATIVE) mg/dL Urine Occult Blood (NEGATIVE) Urine Nitrite (NEGATIVE) Urine Bilirubin (NEGATIVE) Urine Urobilinogen (0.2-1.0) E.U./dL Ur Leukocyte Esterase (NEGATIVE) Urine RBC /HPF Urine WBC /HPF Ur Epithelial Cells /LPF Urine Bacteria (NONE TO FEW) /HPF 07/16/18 07/16/18 07/16/18 Range/Units 08:40 08:40 13:03 WBC (4.0-10.2) K/uL RBC (3.77-5.09) M/uL Hgb (11.7-15.5) g/dL Hct (34.0-46.0) % MCV (84.0-98.0) fL MCH (28.2-33.3) pg MCHC (31.7-36.0) g/dL RDW (11.2-14.1) % Plt Count (150-350) K/uL Neut % (Auto) (45.0-80.0) % Lymph % (Auto) (10.0-50.0) % [place] % (Auto) (2.0-14.0) % Eos % (Auto) (0.0-5.0) % Baso % (Auto) (0.0-2.0) % Neut # (Auto) (1.40-7.00) K/uL Lymph # (Auto) (0.50-3.50) K/uL [place] # (Auto) (0.00-1.00) K/uL Eos # (Auto) (0.00-0.50) K/uL Baso # (Auto) (0.00-0.20) K/uL PT (9.5-12.0) SEC INR APTT (21.0-31.3) SEC Sodium 139 (136-145) mmol/L Potassium 4.2 (3.5-5.1) mmol/L Chloride 102 (98-107) mmol/L Carbon Dioxide 25.1 (21.0-32.0) mmol/L BUN 17 (7-18) mg/dL Creatinine 0.81 (0.51-1.17) mg/dL Est Cr Clr Drug Dosing 69.50 mL/min Estimated GFR (MDRD) > 60 mL/min Glucose 116 H (74-106) mg/dL Lactic Acid 1.4 (0.4-2.0) mmol/L Uric Acid 4.3 (2.6-7.2) mg/dL Calcium 9.1 (8.5-10.1) mg/dL Magnesium 1.9 (1.8-2.4) mg/dL Total Bilirubin 0.9 (0.2-1.0) mg/dL AST 31 (15-37) U/L ALT 56 (12-78) U/L Alkaline Phosphatase 120 H (46-116) IU/L Total Protein 7.5 (6.4-8.2) g/dL Albumin 4.3 (3.4-5.0) g/dL Amylase (25-115) U/L Lipase 168 (73-393) U/L Specimen Type Urinvoid Urine Color Yellow Urine Appearance Clear Urine pH 7.0 (5.0-9.0) Ur Specific [place] 1.015 (1.005-1.030) Urine Protein Negative (NEGATIVE) mg/dL Urine Glucose (UA) Negative (NEGATIVE) mg/dL Urine Ketones Negative (NEGATIVE) mg/dL Urine Occult Blood Small H (NEGATIVE) Urine Nitrite Negative (NEGATIVE) Urine Bilirubin Negative (NEGATIVE) Urine Urobilinogen 0.2 (0.2-1.0) E.U./dL Ur Leukocyte Esterase Negative (NEGATIVE) Urine RBC 0-5 /HPF Urine WBC Not seen /HPF Ur Epithelial Cells Rare /LPF Urine Bacteria Rare (NONE TO FEW) /HPF 07/16/18 07/17/18 Range/Units 14:05 07:10 WBC 5.4 3.6 L (4.0-10.2) K/uL RBC 4.02 3.80 (3.77-5.09) M/uL Hgb 13.3 12.5 (11.7-15.5) g/dL Hct 37.4 36.1 (34.0-46.0) % MCV 93.0 95.0 (84.0-98.0) fL MCH 33.1 32.9 (28.2-33.3) pg MCHC 35.6 34.6 (31.7-36.0) g/dL RDW 12.1 12.3 (11.2-14.1) % Plt Count 130 L 112 L (150-350) K/uL Neut % (Auto) 77.1 63.6 (45.0-80.0) % Lymph % (Auto) 10.4 23.2 (10.0-50.0) % [place] % (Auto) 11.2 10.1 (2.0-14.0) % Eos % (Auto) 1.1 2.8 (0.0-5.0) % Baso % (Auto) 0.2 0.3 (0.0-2.0) % Neut # (Auto) 4.13 2.27 (1.40-7.00) K/uL Lymph # (Auto) 0.56 0.83 (0.50-3.50) K/uL [place] # (Auto) 0.60 0.36 (0.00-1.00) K/uL Eos # (Auto) 0.06 0.10 (0.00-0.50) K/uL Baso # (Auto) 0.01 0.01 (0.00-0.20) K/uL PT (9.5-12.0) SEC INR APTT (21.0-31.3) SEC Sodium (136-145) mmol/L Potassium (3.5-5.1) mmol/L Chloride (98-107) mmol/L Carbon Dioxide (21.0-32.0) mmol/L BUN (7-18) mg/dL Creatinine (0.51-1.17) mg/dL Est Cr Clr Drug Dosing mL/min Estimated GFR (MDRD) mL/min Glucose (74-106) mg/dL Lactic Acid (0.4-2.0) mmol/L Uric Acid (2.6-7.2) mg/dL Calcium (8.5-10.1) mg/dL Magnesium (1.8-2.4) mg/dL Total Bilirubin (0.2-1.0) mg/dL AST (15-37) U/L ALT (12-78) U/L Alkaline Phosphatase (46-116) IU/L Total Protein (6.4-8.2) g/dL Albumin (3.4-5.0) g/dL Amylase (25-115) U/L Lipase (73-393) U/L Specimen Type Urine Color Urine Appearance Urine pH (5.0-9.0) Ur Specific [place] (1.005-1.030) Urine Protein (NEGATIVE) mg/dL Urine Glucose (UA) (NEGATIVE) mg/dL Urine Ketones (NEGATIVE) mg/dL Urine Occult Blood (NEGATIVE) Urine Nitrite (NEGATIVE) Urine Bilirubin (NEGATIVE) Urine Urobilinogen (0.2-1.0) E.U./dL Ur Leukocyte Esterase (NEGATIVE) Urine RBC /HPF Urine WBC /HPF Ur Epithelial Cells /LPF Urine Bacteria (NONE TO FEW) /HPF Laboratory Tests 07/16/18 07/16/18 07/16/18 Range/Units 08:39 08:40 08:40 WBC 7.2 (4.0-10.2) K/uL RBC 4.41 (3.77-5.09) M/uL Hgb 14.5 (11.7-15.5) g/dL Hct 40.8 (34.0-46.0) % MCV 92.5 (84.0-98.0) fL MCH 32.9 (28.2-33.3) pg MCHC 35.5 (31.7-36.0) g/dL RDW 12.3 (11.2-14.1) % Plt Count 116 L (150-350) K/uL Neut % (Auto) 85.5 H (45.0-80.0) % Lymph % (Auto) 5.5 L (10.0-50.0) % [place] % (Auto) 8.4 (2.0-14.0) % Eos % (Auto) 0.6 (0.0-5.0) % Baso % (Auto) 0.0 (0.0-2.0) % Neut # (Auto) 6.19 (1.40-7.00) K/uL Lymph # (Auto) 0.40 L (0.50-3.50) K/uL [place] # (Auto) 0.61 (0.00-1.00) K/uL Eos # (Auto) 0.04 (0.00-0.50) K/uL Baso # (Auto) 0.00 (0.00-0.20) K/uL PT 10.0 (9.5-12.0) SEC INR 0.9 APTT 23.4 (21.0-31.3) SEC Sodium (136-145) mmol/L Potassium (3.5-5.1) mmol/L Chloride (98-107) mmol/L Carbon Dioxide (21.0-32.0) mmol/L BUN (7-18) mg/dL Creatinine (0.51-1.17) mg/dL Est Cr Clr Drug Dosing mL/min Estimated GFR (MDRD) mL/min Glucose (74-106) mg/dL Lactic Acid (0.4-2.0) mmol/L Uric Acid (2.6-7.2) mg/dL Calcium (8.5-10.1) mg/dL Magnesium (1.8-2.4) mg/dL Total Bilirubin (0.2-1.0) mg/dL AST (15-37) U/L ALT (12-78) U/L Alkaline Phosphatase (46-116) IU/L Total Protein (6.4-8.2) g/dL Albumin (3.4-5.0) g/dL Amylase 57 (25-115) U/L Lipase (73-393) U/L Specimen Type Urine Color Urine Appearance Urine pH (5.0-9.0) Ur Specific [place] (1.005-1.030) Urine Protein (NEGATIVE) mg/dL Urine Glucose (UA) (NEGATIVE) mg/dL Urine Ketones (NEGATIVE) mg/dL Urine Occult Blood (NEGATIVE) Urine Nitrite (NEGATIVE) Urine Bilirubin (NEGATIVE) Urine Urobilinogen (0.2-1.0) E.U./dL Ur Leukocyte Esterase (NEGATIVE) Urine RBC /HPF Urine WBC /HPF Ur Epithelial Cells /LPF Urine Bacteria (NONE TO FEW) /HPF 07/16/18 07/16/18 07/16/18 Range/Units 08:40 08:40 13:03 WBC (4.0-10.2) K/uL RBC (3.77-5.09) M/uL Hgb (11.7-15.5) g/dL Hct (34.0-46.0) % MCV (84.0-98.0) fL MCH (28.2-33.3) pg MCHC (31.7-36.0) g/dL RDW (11.2-14.1) % Plt Count (150-350) K/uL Neut % (Auto) (45.0-80.0) % Lymph % (Auto) (10.0-50.0) % [place] % (Auto) (2.0-14.0) % Eos % (Auto) (0.0-5.0) % Baso % (Auto) (0.0-2.0) % Neut # (Auto) (1.40-7.00) K/uL Lymph # (Auto) (0.50-3.50) K/uL [place] # (Auto) (0.00-1.00) K/uL Eos # (Auto) (0.00-0.50) K/uL Baso # (Auto) (0.00-0.20) K/uL PT (9.5-12.0) SEC INR APTT (21.0-31.3) SEC Sodium 139 (136-145) mmol/L Potassium 4.2 (3.5-5.1) mmol/L Chloride 102 (98-107) mmol/L Carbon Dioxide 25.1 (21.0-32.0) mmol/L BUN 17 (7-18) mg/dL Creatinine 0.81 (0.51-1.17) mg/dL Est Cr Clr Drug Dosing 69.50 mL/min Estimated GFR (MDRD) > 60 mL/min Glucose 116 H (74-106) mg/dL Lactic Acid 1.4 (0.4-2.0) mmol/L Uric Acid 4.3 (2.6-7.2) mg/dL Calcium 9.1 (8.5-10.1) mg/dL Magnesium 1.9 (1.8-2.4) mg/dL Total Bilirubin 0.9 (0.2-1.0) mg/dL AST 31 (15-37) U/L ALT 56 (12-78) U/L Alkaline Phosphatase 120 H (46-116) IU/L Total Protein 7.5 (6.4-8.2) g/dL Albumin 4.3 (3.4-5.0) g/dL Amylase (25-115) U/L Lipase 168 (73-393) U/L Specimen Type Urinvoid Urine Color Yellow Urine Appearance Clear Urine pH 7.0 (5.0-9.0) Ur Specific [place] 1.015 (1.005-1.030) Urine Protein Negative (NEGATIVE) mg/dL Urine Glucose (UA) Negative (NEGATIVE) mg/dL Urine Ketones Negative (NEGATIVE) mg/dL Urine Occult Blood Small H (NEGATIVE) Urine Nitrite Negative (NEGATIVE) Urine Bilirubin Negative (NEGATIVE) Urine Urobilinogen 0.2 (0.2-1.0) E.U./dL Ur Leukocyte Esterase Negative (NEGATIVE) Urine RBC 0-5 /HPF Urine WBC Not seen /HPF Ur Epithelial Cells Rare /LPF Urine Bacteria Rare (NONE TO FEW) /HPF 07/16/18 07/17/18 07/17/18 Range/Units 14:05 07:10 07:10 WBC 5.4 3.6 L (4.0-10.2) K/uL RBC 4.02 3.80 (3.77-5.09) M/uL Hgb 13.3 12.5 (11.7-15.5) g/dL Hct 37.4 36.1 (34.0-46.0) % MCV 93.0 95.0 (84.0-98.0) fL MCH 33.1 32.9 (28.2-33.3) pg MCHC 35.6 34.6 (31.7-36.0) g/dL RDW 12.1 12.3 (11.2-14.1) % Plt Count 130 L 112 L (150-350) K/uL Neut % (Auto) 77.1 63.6 (45.0-80.0) % Lymph % (Auto) 10.4 23.2 (10.0-50.0) % [place] % (Auto) 11.2 10.1 (2.0-14.0) % Eos % (Auto) 1.1 2.8 (0.0-5.0) % Baso % (Auto) 0.2 0.3 (0.0-2.0) % Neut # (Auto) 4.13 2.27 (1.40-7.00) K/uL Lymph # (Auto) 0.56 0.83 (0.50-3.50) K/uL [place] # (Auto) 0.60 0.36 (0.00-1.00) K/uL Eos # (Auto) 0.06 0.10 (0.00-0.50) K/uL Baso # (Auto) 0.01 0.01 (0.00-0.20) K/uL PT (9.5-12.0) SEC INR APTT (21.0-31.3) SEC Sodium 141 (136-145) mmol/L Potassium 4.1 (3.5-5.1) mmol/L Chloride 107 (98-107) mmol/L Carbon Dioxide 26.6 (21.0-32.0) mmol/L BUN 7 (7-18) mg/dL Creatinine 0.78 (0.51-1.17) mg/dL Est Cr Clr Drug Dosing 72.17 mL/min Estimated GFR (MDRD) > 60 mL/min Glucose 111 H (74-106) mg/dL Lactic Acid (0.4-2.0) mmol/L Uric Acid (2.6-7.2) mg/dL Calcium 8.5 (8.5-10.1) mg/dL Magnesium (1.8-2.4) mg/dL Total Bilirubin 0.5 (0.2-1.0) mg/dL AST 60 H (15-37) U/L ALT 80 H (12-78) U/L Alkaline Phosphatase 100 (46-116) IU/L Total Protein 6.2 L (6.4-8.2) g/dL Albumin 3.4 (3.4-5.0) g/dL Amylase (25-115) U/L Lipase (73-393) U/L Specimen Type Urine Color Urine Appearance Urine pH (5.0-9.0) Ur Specific [place] (1.005-1.030) Urine Protein (NEGATIVE) mg/dL Urine Glucose (UA) (NEGATIVE) mg/dL Urine Ketones (NEGATIVE) mg/dL Urine Occult Blood (NEGATIVE) Urine Nitrite (NEGATIVE) Urine Bilirubin (NEGATIVE) Urine Urobilinogen (0.2-1.0) E.U./dL Ur Leukocyte Esterase (NEGATIVE) Urine RBC /HPF Urine WBC /HPF Ur Epithelial Cells /LPF Urine Bacteria (NONE TO FEW) /HPF Microbiology 07/16/18 08:45 Stool / Feces Stool Occult Blood ([facility]) - Final Hemoccult positive. Stool specimens collected for culture and sensitivity and H. pylori antigen with results pending Urine set up for culture and sensitivity. [facility] Results Last 24 Hours: Microbiology 07/16/18 08:45 Stool Occult Blood ([facility]) - Final Stool / Feces Med Orders - Current: Current Medications Acetaminophen (Tylenol) 650 mg PO Q4H PRN PRN Reason: Pain Last Admin: 07/16/18 19:14 Dose: 650 mg Anastrozole (Arimidex) 1 mg PO DAILY [facility] Citalopram Hydrobromide (Celexa) 20 mg PO DAILY [facility] Famotidine (Pepcid) 20 mg IVPUSH Q12H [facility] Ceftriaxone Sodium 1 gm/ (Sodium Chloride) 100 mls @ 200 mls/hr IV Q12H [facility] Last Admin: 07/16/18 20:14 Dose: 200 mls/hr Metronidazole 500 mg/ Premix 100 mls @ 100 mls/hr IV Q8H [facility] Last Admin: 07/17/18 05:18 Dose: 100 mls/hr Lactated Ringer's (Ringers, Lactated) 1,000 mls @ 100 mls/hr IV ASDIRECTED [facility] Last Admin: 07/17/18 00:27 Dose: 100 mls/hr Ondansetron HCl (Zofran) 4 mg IVPUSH Q6H PRN PRN Reason: Nausea/Vomiting Last Admin: 07/16/18 19:15 Dose: 4 mg Pantoprazole Sodium (Protonix Iv) 40 mg IVPUSH Q12H [facility] Last Admin: 07/16/18 20:14 Dose: 40 mg Potassium Chloride (Klor-Con M20) 20 meq PO TID [facility] Stop: 07/17/18 12:00 Last Admin: 07/16/18 17:22 Dose: 20 meq Sodium Chloride (Saline Flush) 10 ml FLUSH ASDIRECTED PRN PRN Reason: Keep Vein Open Last Admin: 07/16/18 19:16 Dose: 10 ml Sodium Chloride (Saline Flush) 10 ml FLUSH Q12HR [facility] Last Admin: 07/16/18 20:57 Dose: 10 ml Sodium Chloride (Saline Flush) 10 ml FLUSH Q12HR [facility] Last Admin: 07/16/18 20:57 Dose: 10 ml Temazepam (Restoril) 15 mg PO DAILY@2000 PRN PRN Reason: Insomnia Discontinued Medications Bisacodyl (Dulcolax) 10 mg PO ONETIME ONE Stop: 07/16/18 12:01 Last Admin: 07/16/18 12:46 Dose: 10 mg Famotidine (Pepcid) 40 mg IVPUSH ONETIME ONE Stop: 07/16/18 08:39 Last Admin: 07/16/18 09:39 Dose: 40 mg Ceftriaxone Sodium 1 gm/ (Sodium Chloride) 100 mls @ 200 mls/hr IV ONETIME ONE Stop: 07/16/18 09:07 Last Admin: 07/16/18 09:32 Dose: 200 mls/hr Lactated Ringer's (Ringers, Lactated) 1,000 mls @ 999 mls/hr IV .BOLUS ONE Stop: 07/16/18 09:38 Last Admin: 07/16/18 09:36 Dose: 999 mls/hr Metronidazole 500 mg/ Premix 100 mls @ 100 mls/hr IV ONETIME ONE Stop: 07/16/18 09:37 Last Admin: 07/16/18 09:40 Dose: 100 mls/hr Metronidazole 500 mg/ Premix 100 mls @ 100 mls/hr IV Q8H [facility] Iopamidol (Isovue-300 (61%)) 100 ml IVPUSH ONETIME ONE Stop: 07/16/18 09:31 Last Admin: 07/16/18 09:16 Dose: 100 ml Ondansetron HCl (Zofran) 4 mg IVPUSH ONETIME ONE Stop: 07/16/18 08:39 Last Admin: 07/16/18 09:41 Dose: Not Given Pantoprazole Sodium (Protonix Iv) 40 mg IVPUSH ONETIME ONE Stop: 07/16/18 08:39 Last Admin: 07/16/18 09:35 Dose: 40 mg Polyethylene Glycol (Miralax) 238 gm PO Q30M [facility] Stop: 07/16/18 16:31 Last Admin: 07/16/18 16:08 Dose: 1 dose Sodium Chloride (Saline Flush) 10 ml FLUSH ASDIRECTED PRN PRN Reason: Keep Vein Open Last Admin: 07/16/18 09:36 Dose: 10 ml - Exam Quality Assessment: DVT Prophylaxis. No: Supplemental Oxygen, Central Line/PICC , Urine Catheter, Skin Breakdown, Restraints General: Alert, Oriented, Cooperative, No Acute Distress HEENT: Pupils Equal, Pupils Reactive, EOMI, Mucous Membr. Moist/[place] Neck: Supple, Trachea Midline, No JVD, No Thyromegaly, +2 Carotid Pulse wo Bruit. No: Lymphadenopathy Lungs: Clear to Auscultation, Normal Respiratory Effort. No: Rub Cardiovascular: Regular Rate, Regular Rhythm, No Murmurs. No: Gallops, Rubs GI/Abdominal Exam: Normal Bowel Sounds, Soft, Non-Tender, No Organomegaly, No Distention, No Abnormal Bruit, No Mass. No: Guarding (Female) Exam: Deferred Back Exam: Normal Inspection, Full Range of Motion. No: CVA Tenderness (L), CVA Tenderness (R), Muscle Spasm Extremities: Normal Inspection, Normal Range of Motion, Non-Tender, No Pedal Edema, Normal Capillary Refill. No: Saw's Sign Peripheral Pulses: 2+: Radial (L), Radial (R), Dorsalis Pedis (L), Dorsalis Pedis (R) Skin: Warm, Dry, Intact. No: Ecchymosis Neurological: No New Focal Deficit, Other (No clinical orthostasis) Psy/Mental Status: Alert, Normal Affect, Normal Mood. No: Depressed, Agitated, Hallucinations, Withdrawal Symptoms - Problem List & Annotations (1) Lower GI bleed SNOMED Code(s): 14370655 Code(s): K92.2 - GASTROINTESTINAL HEMORRHAGE, UNSPECIFIED Status: Acute Priority: High Current Visit: Yes Onset Date: 07/16/18 Annotation/Comment: : Excellent results from bowel preparation for planned EGD and colonoscopy later today. No history of significant gross hematochezia, melena, abdominal pain, etc. per history from the patient and nurses. She has not been on antibiotics recently. Initiate probiotics secondary to current antibiotic therapy with mild stable thrombocytopenia, new mild leukopenia, and a decrease of her hemoglobin by 2 g since admission. Secondary to progressive drop in her hemoglobin the patient will be kept hospitalized until tomorrow morning with repeat blood work and x-rays at that time. Probable lower GI bleed of uncertain etiology prior to admission, however cannot rule out possible colitis secondary to recent travel to [place] as above. Stool specimens have been ordered for culture and sensitivity, H. pylori antigen, etc. Note the patient did have similar symptoms in 2017 with mild colitis by EGD and colonoscopy at that time. Vital signs and clinical exam are stable. Various therapeutic options were previously discussed with the patient, who did agree to placement in this facility in observation status and planned repeat EGD and colonoscopy. Abdominal assessments with vitals have been stable with no pain at this time. No significant hematochezia during emergency room care. Further GI workup, etc. depending on clinical course. Note history of breast cancer as above. Note IV Rocephin and IV Flagyl initiated in the emergency room as GI prophylaxis. No significant anemia or leukocytosis at time of admission. (2) Peptic reflux disease SNOMED Code(s): 468621738 Code(s): K21.9 - GASTRO-ESOPHAGEAL REFLUX DISEASE WITHOUT ESOPHAGITIS Status: Chronic Priority: Medium Current Visit: Yes Annotation/Comment:: High-dose IV Pepcid and IV Protonix given as GI prophylaxis initiated in the emergency room. Patient has not had any problems with her GERD recently with no current medications required. (3) Breast cancer SNOMED Code(s): 459847785 Code(s): C50.919 - MALIGNANT NEOPLASM OF UNSP SITE OF UNSPECIFIED FEMALE BREAST Status: Ruled-out Priority: Medium Current Visit: Yes Qualifiers: Breast location: upper inner quadrant of breast Estrogen receptor status: positive Patient sex: female Laterality: right Qualified Code(s): C50.211 - Malignant neoplasm of upper-inner quadrant of right female breast; Z17.0 - Estrogen receptor positive status [ER+] Annotation/Comment:: History of breast cancer as per emergency room note with no previous metastases. EGD and colonoscopy as above as precautionary measure and as per recommendations from radiologist. Note CT scan results on admission were negative. Note current Arimdex therapy with completion of chemotherapy and radiation therapy as per emergency room note. No evidence of recurrence by patient's monthly self breast examinations with patient closely followed by the breast clinic at [facility]. (4) Mixed anxiety depressive disorder SNOMED Code(s): 123243516 Code(s): F41.8 - OTHER SPECIFIED ANXIETY DISORDERS Status: Chronic Priority: Medium Current Visit: Yes Annotation/Comment:: Stable by history and during this hospitalization. (5) Hyperlipidemia SNOMED Code(s): 09150467 Code(s): E78.5 - HYPERLIPIDEMIA, UNSPECIFIED Status: Chronic Priority: Medium Current Visit: Yes Qualifiers: Hyperlipidemia type: mixed hyperlipidemia Qualified Code(s): E78.2 - Mixed hyperlipidemia Annotation/Comment:: Diet-controlled by patient history. (6) Elevated LFTs SNOMED Code(s): 543408861, 862548656 Code(s): R94.5 - ABNORMAL RESULTS OF LIVER FUNCTION STUDIES Status: Acute Priority: Medium Current Visit: Yes Onset Date: 07/17/18 Annotation/ Comment:: Mild LFTs elevation likely secondary to current IV Rocephin therapy. Observe for now. Consider hepatitis screening depending on repeat blood work in the a.m. - Problem List Review Problem List Initiated/Reviewed/Updated: Yes - My Orders Last 24 Hours: My Active Orders 07/16/18 08:38 Sodium Chloride 0.9% [Saline Flush] 10 ml FLUSH ASDIRECTED PRN Resuscitation Status Stat 07/16/18 08:39 Abdomen Pelvis w Cont [CT] Stat Abdomen Series w Chest 1V [CR] Stat Peripheral IV Insertion Adult [OM.PC] Stat 07/16/18 08:44 Peripheral IV Insertion Adult [OM.PC] Routine 07/16/18 11:15 EKG Documentation Completion [RC] ASDIRECTED 07/16/18 11:16 Communication Order [RC] Q4HR Communication Order [RC] ROUTINE Height and Weight [RC] DAILY Intake and Output Strict [RC] 06,14,22 Oxygen Therapy [RC] .PRN Up With Assistance [RC] ASDIRECTED Vital Signs [RC] Q4HR GM Immunization Reflex [OM.PC] Click To Edit 07/16/18 11:19 Pulse Oximetry [RC] ASDIRECTED 07/16/18 11:24 Cardiac Monitoring [RC] Q2HR 07/16/18 11:29 Consult to Physician [CONS] Routine 07/16/18 11:30 Lactated Ringers [Ringers, Lactated] 1,000 ml IV ASDIRECTED 07/16/18 11:31 Notify Provider Consults [RC] ASDIRECTED 07/16/18 12:00 Acetaminophen [Tylenol] 650 mg PO Q4H PRN Potassium Chloride [Klor-Con M20] 20 meq PO TID 07/16/18 13:03 CULTURE URINE [RM] Stat 07/16/18 15:00 Ondansetron [Zofran] 4 mg IVPUSH Q6H PRN 07/16/18 15:15 C DIFFICILE TOXIN BY PCR [MREF] Routine H PYLORI STOOL ANTIGEN [MREF] Urgent STOOL CULTURE/SHIGA TOXIN [MREF] Routine 07/16/18 20:00 Sodium Chloride 0.9% [Saline Flush] 10 ml FLUSH Q12HR Sodium Chloride 0.9% [Saline Flush] 10 ml FLUSH Q12HR Temazepam [Restoril] 15 mg PO DAILY@1999 PRN 07/16/18 21:00 Pantoprazole [ProTONIX IV] 40 mg IVPUSH Q12H cefTRIAXone [Rocephin] 1 gm Sodium Chloride 0.9% [Normal Saline] 100 ml IV Q12H 07/16/18 22:00 metroNIDAZOLE/Normal Saline [Flagyl 500 MG in NS 100 ML] 500 mg Premix Bag 1 bag IV Q8H 07/16/18 Lunch Heart Healthy Diet [DIET] 07/17/18 07:10 COMPREHENSIVE METABOLIC PN,CMP [CHEM] Routine 07/17/18 08:00 Anastrozole [Arimidex] 1 mg PO DAILY Citalopram [Celexa] 20 mg PO DAILY 07/17/18 21:00 Famotidine [Pepcid] 20 mg IVPUSH Q12H 07/18/18 05:11 Abdomen Series w Chest 1V [CR] Routine - Assessment Assessment:: As above - Plan Plan:: As above. Extensive precautions were given to the patient, who is in agreement with the treatment plan. Probable discharge to home in the a.m.
[2018-07-17] MEDS: Pantoprazole 40 MG Vial IVPUSH SCH ×2 (09:53→21:12)
[2018-07-17] MEDS: cefTRIAXone 1 GM in Sodium Chloride 0.9% 100 ML IV SCH (09:53)
[2018-07-17] MEDS: Sodium Chloride 0.9% 10 ML Syringe FLUSH SCH ×4 (10:03→21:07)
--- NOTE | 2018-07-17 11:09 | PCM.PN ---
- General Info Date of Service: 07/17/18 - Review of Systems Systems Review Comment:: 48-year-old female referred for EGD and colonoscopy. She has a history of recent hematochezia as well as vomiting. Symptoms started 2 days ago suddenly. She feels well at this time. She notes status she had a similar episode about 2 years ago and no specific reason for the symptoms was identified. I have discussed the proposed upper and lower endoscopy with the patient. Risks such as but not limited to bleeding and GI injury reviewed. She appears to understand and agrees to proceed. - Patient Data Vitals - Most Recent: Last Vital Signs Temp 98.3 F 07/17/18 08:00 Pulse 75 07/17/18 08:00 Resp 17 07/17/18 08:00 BP 108/67 07/17/18 08:00 Pulse Ox 97 07/17/18 08:00 Weight - Most Recent: 70.216 kg I&O - Last 24 Hours: Intake & Output 07/16/18 07/17/18 07/17/18 22:59 06:59 14:59 Intake Total 2655 1134 Output Total 850 350 Balance 1805 784 Lab Results Last 24 Hours: Laboratory Results - last 24 hr 07/16/18 07/16/18 07/17/18 Range/Units 13:03 14:05 07:10 WBC 5.4 3.6 L (4.0-10.2) K/uL RBC 4.02 3.80 (3.77-5.09) M/uL Hgb 13.3 12.5 (11.7-15.5) g/dL Hct 37.4 36.1 (34.0-46.0) % MCV 93.0 95.0 (84.0-98.0) fL MCH 33.1 32.9 (28.2-33.3) pg MCHC 35.6 34.6 (31.7-36.0) g/dL RDW 12.1 12.3 (11.2-14.1) % Plt Count 130 L 112 L (150-350) K/uL Neut % (Auto) 77.1 63.6 (45.0-80.0) % Lymph % (Auto) 10.4 23.2 (10.0-50.0) % Mer[place] % (Auto) 11.2 10.1 (2.0-14.0) % Eos % (Auto) 1.1 2.8 (0.0-5.0) % Baso % (Auto) 0.2 0.3 (0.0-2.0) % Neut # (Auto) 4.13 2.27 (1.40-7.00) K/uL Lymph # (Auto) 0.56 0.83 (0.50-3.50) K/uL Merrick # (Auto) 0.60 0.36 (0.00-1.00) K/uL Eos # (Auto) 0.06 0.10 (0.00-0.50) K/uL Baso # (Auto) 0.01 0.01 (0.00-0.20) K/uL Sodium (136-145) mmol/L Potassium (3.5-5.1) mmol/L Chloride (98-107) mmol/L Carbon Dioxide (21.0-32.0) mmol/L BUN (7-18) mg/dL Creatinine (0.51-1.17) mg/dL Est Cr Clr Drug Dosing mL/min Estimated GFR (MDRD) mL/min Glucose (74-106) mg/dL Calcium (8.5-10.1) mg/dL Total Bilirubin (0.2-1.0) mg/dL AST (15-37) U/L ALT (12-78) U/L Alkaline Phosphatase (46-116) IU/L Total Protein (6.4-8.2) g/dL Albumin (3.4-5.0) g/dL Specimen Type Urinvoid Urine Color Yellow Urine Appearance Clear Urine pH 7.0 (5.0-9.0) Ur Specific [place] 1.015 (1.005-1.030) Urine Protein Negative (NEGATIVE) mg/dL Urine Glucose (UA) Negative (NEGATIVE) mg/dL Urine Ketones Negative (NEGATIVE) mg/dL Urine Occult Blood Small H (NEGATIVE) Urine Nitrite Negative (NEGATIVE) Urine Bilirubin Negative (NEGATIVE) Urine Urobilinogen 0.2 (0.2-1.0) E.U./dL Ur Leukocyte Esterase Negative (NEGATIVE) Urine RBC 0-5 /HPF Urine WBC Not seen /HPF Ur Epithelial Cells Rare /LPF Urine Bacteria Rare (NONE TO FEW) /HPF 07/17/18 Range/Units 07:10 WBC (4.0-10.2) K/uL RBC (3.77-5.09) M/uL Hgb (11.7-15.5) g/dL Hct (34.0-46.0) % MCV (84.0-98.0) fL MCH (28.2-33.3) pg MCHC (31.7-36.0) g/dL RDW (11.2-14.1) % Plt Count (150-350) K/uL Neut % (Auto) (45.0-80.0) % Lymph % (Auto) (10.0-50.0) % Merrick % (Auto) (2.0-14.0) % Eos % (Auto) (0.0-5.0) % Baso % (Auto) (0.0-2.0) % Neut # (Auto) (1.40-7.00) K/uL Lymph # (Auto) (0.50-3.50) K/uL Merrick # (Auto) (0.00-1.00) K/uL Eos # (Auto) (0.00-0.50) K/uL Baso # (Auto) (0.00-0.20) K/uL Sodium 141 (136-145) mmol/L Potassium 4.1 (3.5-5.1) mmol/L Chloride 107 (98-107) mmol/L Carbon Dioxide 26.6 (21.0-32.0) mmol/L BUN 7 (7-18) mg/dL Creatinine 0.78 (0.51-1.17) mg/dL Est Cr Clr Drug Dosing 72.17 mL/min Estimated GFR (MDRD) > 60 mL/min Glucose 111 H (74-106) mg/dL Calcium 8.5 (8.5-10.1) mg/dL Total Bilirubin 0.5 (0.2-1.0) mg/dL AST 60 H (15-37) U/L ALT 80 H (12-78) U/L Alkaline Phosphatase 100 (46-116) IU/L Total Protein 6.2 L (6.4-8.2) g/dL Albumin 3.4 (3.4-5.0) g/dL Specimen Type Urine Color Urine Appearance Urine pH (5.0-9.0) Ur Specific [place] (1.005-1.030) Urine Protein (NEGATIVE) mg/dL Urine Glucose (UA) (NEGATIVE) mg/dL Urine Ketones (NEGATIVE) mg/dL Urine Occult Blood (NEGATIVE) Urine Nitrite (NEGATIVE) Urine Bilirubin (NEGATIVE) Urine Urobilinogen (0.2-1.0) E.U./dL Ur Leukocyte Esterase (NEGATIVE) Urine RBC /HPF Urine WBC /HPF Ur Epithelial Cells /LPF Urine Bacteria (NONE TO FEW) /HPF [place] Results Last 24 Hours: Microbiology 07/16/18 08:45 Stool Occult Blood (CASEY) - Final Stool / Feces Med Orders - Current: Current Medications Acetaminophen (Tylenol) 650 mg PO Q4H PRN PRN Reason: Pain Last Admin: 07/16/18 19:14 Dose: 650 mg Anastrozole (Arimidex) 1 mg PO DAILY [facility] Citalopram Hydrobromide (Celexa) 20 mg PO DAILY [facility] Famotidine (Pepcid) 20 mg IVPUSH Q12H [facility] Ceftriaxone Sodium 1 gm/ (Sodium Chloride) 100 mls @ 200 mls/hr IV Q12H [facility] Last Admin: 07/17/18 09:53 Dose: 200 mls/hr Metronidazole 500 mg/ Premix 100 mls @ 100 mls/hr IV Q8H [facility] Last Admin: 07/17/18 05:18 Dose: 100 mls/hr Lactated Ringer's (Ringers, Lactated) 1,000 mls @ 100 mls/hr IV ASDIRECTED [facility] Last Admin: 07/17/18 00:27 Dose: 100 mls/hr Lactobacillus Rhamnosus (Culturelle) 2 cap PO TID [facility] Ondansetron HCl (Zofran) 4 mg IVPUSH Q6H PRN PRN Reason: Nausea/Vomiting Last Admin: 07/16/18 19:15 Dose: 4 mg Pantoprazole Sodium (Protonix Iv) 40 mg IVPUSH Q12H [facility] Last Admin: 07/17/18 09:53 Dose: 40 mg Potassium Chloride (Klor-Con M20) 20 meq PO TID [facility] Stop: 07/17/18 12:00 Last Admin: 07/16/18 17:22 Dose: 20 meq Sodium Chloride (Saline Flush) 10 ml FLUSH ASDIRECTED PRN PRN Reason: Keep Vein Open Last Admin: 07/16/18 19:16 Dose: 10 ml Sodium Chloride (Saline Flush) 10 ml FLUSH Q12HR [facility] Last Admin: 07/17/18 10:03 Dose: Not Given Sodium Chloride (Saline Flush) 10 ml FLUSH Q12HR [facility] Last Admin: 07/17/18 10:04 Dose: Not Given Temazepam (Restoril) 15 mg PO DAILY@2000 PRN PRN Reason: Insomnia Discontinued Medications Bisacodyl (Dulcolax) 10 mg PO ONETIME ONE Stop: 07/16/18 12:01 Last Admin: 07/16/18 12:46 Dose: 10 mg Famotidine (Pepcid) 40 mg IVPUSH ONETIME ONE Stop: 07/16/18 08:39 Last Admin: 07/16/18 09:39 Dose: 40 mg Ceftriaxone Sodium 1 gm/ (Sodium Chloride) 100 mls @ 200 mls/hr IV ONETIME ONE Stop: 07/16/18 09:07 Last Admin: 07/16/18 09:32 Dose: 200 mls/hr Lactated Ringer's (Ringers, Lactated) 1,000 mls @ 999 mls/hr IV .BOLUS ONE Stop: 07/16/18 09:38 Last Admin: 07/16/18 09:36 Dose: 999 mls/hr Metronidazole 500 mg/ Premix 100 mls @ 100 mls/hr IV ONETIME ONE Stop: 07/16/18 09:37 Last Admin: 07/16/18 09:40 Dose: 100 mls/hr Metronidazole 500 mg/ Premix 100 mls @ 100 mls/hr IV Q8H [facility] Iopamidol (Isovue-300 (61%)) 100 ml IVPUSH ONETIME ONE Stop: 07/16/18 09:31 Last Admin: 07/16/18 09:16 Dose: 100 ml Ondansetron HCl (Zofran) 4 mg IVPUSH ONETIME ONE Stop: 07/16/18 08:39 Last Admin: 07/16/18 09:41 Dose: Not Given Pantoprazole Sodium (Protonix Iv) 40 mg IVPUSH ONETIME ONE Stop: 07/16/18 08:39 Last Admin: 07/16/18 09:35 Dose: 40 mg Polyethylene Glycol (Miralax) 238 gm PO Q30M [facility] Stop: 07/16/18 16:31 Last Admin: 07/16/18 16:08 Dose: 1 dose Sodium Chloride (Saline Flush) 10 ml FLUSH ASDIRECTED PRN PRN Reason: Keep Vein Open Last Admin: 07/16/18 09:36 Dose: 10 ml - Problem List Review Problem List Initiated/Reviewed/Updated: Yes - Assessment Assessment:: Hematochezia - Plan Plan:: EGD and colonoscopy
[2018-07-17] MEDS ORDERED: fentaNYL 100 MCG/2 ML SDV ONE ×2 (11:10→11:17)
[2018-07-17] MEDS ORDERED: Propofol 200 MG/20 ML SDV ONE ×2 (11:10→11:17)
[2018-07-17] MEDS ORDERED: Midazolam 1 MG/ML 2 ML SDV ONE ×2 (11:10→11:17)
[2018-07-17] MEDS ORDERED: metroNIDAZOLE/Normal Saline 500 MG in Premix Bag 1 BAG IV SCH (11:15)
[2018-07-17] MEDS ORDERED: Lidocaine 2% 5 ML SDV ONE (11:17)
--- NOTE | 2018-07-17 12:08 | PCM.OPNOTE ---
- General Post-Op/Procedure Note Date of Surgery/Procedure: 07/17/18 Operative Procedure(s): EGD and Colonoscopy with Biopsy Findings: Normal appearing upper endoscopy Inflammation of descending and transverse colon mucosa without ulceration Moderate sized hemorrhoids Pre Op Diagnosis: Rectal bleeding Post-Op Diagnosis: Colitis. Hemorrhoids Anesthesia Technique: MAC Primary Surgeon: Kamar Love Pathology: Colon biopsies Output, Urine Amount: 0 EBL in mLs: 2 Complications: None Condition: Good Free Text/Narrative:: Intake & Output 07/16/18 07/17/18 07/17/18 22:59 06:59 14:59 Intake Total 2655 1134 700 Output Total 850 350 Balance 1805 784 700
[2018-07-17] MEDS: Potassium Chloride 20 MEQ Tab.ER PO SCH ×2 (12:28→13:33)
[2018-07-17] MEDS: Lactobacillus Rhamnosus GG (Probiotic) Cap PO SCH ×2 (13:33→17:25)
[2018-07-17] MEDS: Anastrozole 1 MG Tab PO SCH (16:06)
[2018-07-17] MEDS: Citalopram 20 MG Tab PO SCH (16:06)
[2018-07-17] MEDS: Famotidine 20 MG/2 ML SDV IVPUSH SCH (21:12)
[2018-07-17] MEDS: Acetaminophen 325 MG Tab PO PRN (21:33)
[2018-07-18] MEDS: metroNIDAZOLE/Normal Saline 500 MG in Premix Bag 1 BAG IV SCH (06:07)
[2018-07-18] MEDS: Sodium Chloride 0.9% 10 ML Syringe FLUSH PRN (06:07)
[2018-07-18 06:12] VITALS: BP 113/68
[2018-07-18 07:41] LABS: CHLORIDE,CL 104 mmol/L (98-107); SODIUM,NA 141 mmol/L (136-145)
[2018-07-18] MEDS: Citalopram 20 MG Tab PO SCH (09:11)
[2018-07-18] MEDS: Anastrozole 1 MG Tab PO SCH (09:12)
[2018-07-18] MEDS: Lactobacillus Rhamnosus GG (Probiotic) Cap PO SCH ×2 (09:12→13:21)
[2018-07-18] MEDS: Famotidine 20 MG/2 ML SDV IVPUSH SCH (09:14)
[2018-07-18] MEDS: Pantoprazole 40 MG Vial IVPUSH SCH (09:14)
[2018-07-18] MEDS: Sodium Chloride 0.9% 10 ML Syringe FLUSH SCH ×2 (09:14→09:15)
--- NOTE | 2018-07-18 10:04 | OR ---
Date of Procedure: 07/17/2018 PREOPERATIVE DIAGNOSIS: Rectal bleeding. POSTOPERATIVE DIAGNOSES: 1. Colitis. 2. Hemorrhoids. OPERATION PERFORMED: Esophagogastroduodenoscopy and colonoscopy with biopsy. INDICATIONS FOR SURGERY: This 48-year-old female developed sudden onset of unexplained rectal bleeding. This was associated with some vomiting and she is referred for upper and lower endoscopy. FINDINGS: Structures on upper endoscopy including the esophagus, stomach, and duodenum all appeared normal. No visible signs of inflammation or ulcers were seen. On examination of the colon, the patient had inflammation in the descending and transverse colon. The colonic mucosa through here appeared hyperemic, although it was not ulcerated and no active bleeding was seen. The remainder of the colon appeared normal. There were moderate-sized hemorrhoids noted. DESCRIPTION OF PROCEDURE: The patient was taken to the operating room. She was given intravenous sedation and her throat was topically anesthetized. The esophagus was intubated with the Olympus gastroscope. This was carefully advanced under direct visualization through the esophagus, stomach, and down into the duodenum, where examination to the fourth portion was performed. The duodenum was carefully examined and then the stomach was fully examined, including retroflexed examination of the fundus. The GE junction and esophagus were then re-examined as the scope was removed. Attention was turned to colonoscopy. Digital rectal exam was performed showing no rectal masses. The Olympus colonoscope was inserted into the rectum. Retroflexed examination of the rectal canal was performed. The scope was then carefully advanced under direct visualization through the entire length of the colon until the cecum was reached. Cecal acquisition was confirmed by noting the normal internal cecal anatomy including the appendiceal orifice and ileocecal valve. The ileocecal valve was cannulated and the terminal ileum was also examined. After examining the terminal ileum and cecum, the scope was slowly withdrawn, sequentially re- examining the colonic segments. In the area of visible inflammation, random biopsies were taken. After the colon had been completely examined and with no sign of any complication, the scope was removed and the patient was taken from the operating room in satisfactory condition. ESTIMATED BLOOD LOSS: 2 mL. COMPLICATIONS: None. PROGNOSIS: Good. JESSE Love MD /[id number]
--- NOTE | 2018-07-18 11:40 | PCM.DCSUM1 ---
Discharge Summary - Hospital Course HPI Initial Comments: See emergency room note/admission H&P Brief History: See emergency room note/admission H&P Diagnosis: Stroke: No Modified [place] Scale: No Symptoms at All Modified [place] Scale Score: 0 - Discharge Data Discharge Date: 07/18/18 Discharge Disposition: Home, Self-Care 01 Condition: Good - Discharge Diagnosis/Problem(s) (1) Lower GI bleed SNOMED Code(s): 06426944 ICD Code: K92.2 - GASTROINTESTINAL HEMORRHAGE, UNSPECIFIED Status: Acute Priority: High Current Visit: Yes Onset Date: 07/16/18 Problem Details: EGD and colonoscopy performed on 07/17/18 were overall normal with exception of some moderate hemorrhoids, however no evidence for acute bleeding, etc. Excellent results from previous bowel preparation with no history of significant gross hematochezia, melena, abdominal pain, etc. per history from the patient and nurses. She continues to have normal bowel movements She had not been on antibiotics prior to admission with Rocephin recently. Initiate probiotics secondary to current antibiotic therapy with IV Rocephin discontinued yesterday secondary to mild LFTs elevation. No true intolerance to this medication, however. IV Flagyl therapy was continued. No further antibiotic therapy required at discharge. Note mild stable thrombocytopenia, new mild leukopenia, and a decrease of her hemoglobin by 2 g since admission during this hospitalization however improved hemoglobin today.. Secondary to progressive drop in her hemoglobin the patient was kept hospitalized for an initial day. Probable lower GI bleed of uncertain etiology prior to admission, however cannot rule out possible colitis secondary to recent travel to [place] as above. Stool specimens have been ordered for culture and sensitivity with results still pending. H. pylori antigen and C. difficile antigen results were negative. Note the patient did have similar symptoms in 2017 with mild colitis by EGD and colonoscopy at that time. Patient is aware of my recommendation of a RBC scan to rule out a AVM. Close follow-up by regular physician as per discharge instructions. Vital signs and clinical exam are stable at discharge. Note history of breast cancer as above. (2) Peptic reflux disease SNOMED Code(s): 453334960 ICD Code: K21.9 - GASTRO-ESOPHAGEAL REFLUX DISEASE WITHOUT ESOPHAGITIS Status: Chronic Priority: Medium Current Visit: Yes Problem Details: High- dose IV Pepcid and IV Protonix given as GI prophylaxis and initiated in the emergency room. Patient has not had any problems with her GERD recently with no current medications required at discharge. (3) Breast cancer SNOMED Code(s): 316108231 ICD Code: C50.919 - MALIGNANT NEOPLASM OF UNSP SITE OF UNSPECIFIED FEMALE BREAST Status: Ruled-out Priority: Medium Current Visit: Yes Problem Details: History of breast cancer as per emergency room note with no previous metastases. EGD and colonoscopy as above as precautionary measure and as per recommendations from radiologist. Note CT scan results on admission were negative. Note current Arimdex therapy with completion of chemotherapy and radiation therapy as per emergency room note. No evidence of recurrence by patient's monthly self breast examinations with patient closely followed by the breast clinic at [facility]. Qualifiers: Breast location: upper inner quadrant of breast Estrogen receptor status: positive Patient sex: female Laterality: right Qualified Code(s): C50.211 - Malignant neoplasm of upper-inner quadrant of right female breast; Z17.0 - Estrogen receptor positive status [ER+] (4) Mixed anxiety depressive disorder SNOMED Code(s): 526246855 ICD Code: F41.8 - OTHER SPECIFIED ANXIETY DISORDERS Status: Chronic Priority: Medium Current Visit: Yes Problem Details: Stable by history and during this hospitalization. (5) Hyperlipidemia SNOMED Code(s): 34746400 ICD Code: E78.5 - HYPERLIPIDEMIA, UNSPECIFIED Status: Chronic Priority: Medium Current Visit: Yes Problem Details: Diet-controlled by patient history. Qualifiers: Hyperlipidemia type: mixed hyperlipidemia Qualified Code(s): E78.2 - Mixed hyperlipidemia (6) Elevated LFTs SNOMED Code(s): 112948647, 230616408 ICD Code: R94.5 - ABNORMAL RESULTS OF LIVER FUNCTION STUDIES Status: Acute Priority: Medium Current Visit: Yes Onset Date: 07/17/18 Problem Details: LFTs normal today as above. Mild LFTs elevation likely secondary to current IV Rocephin therapy. Observe for now. Consider hepatitis screening, if this recurs. - Patient Summary/Data Operative Procedure(s) Performed: EGD and Colonoscopy with Biopsy Complications: None Consults: Consultations 07/16/18 11:29 Consult to Physician [CONS] Routine Labs Pending at D/C: Stool specimens for culture and sensitivity Recommended Follow-up Testing/Procedures: As per discharge instructions Planned Operative Procedure(s) after DC: None Hospital Course: She was treated aggressively with IV fluids, IV Rocephin, and IV Flagyl with EGD and colonoscopy conducted as above. No significant return of her gross hematochezia during this hospitalization. Close follow-up by regular provider as above. - Patient Instructions Diet: Heart Healthy Diet Diet, Other: [place] diet as per discharge instructions Activity: As Tolerated Driving: May Drive Today Showering/Bathing: May Shower Notify Provider of: Fever, Increased Pain, Nausea and/or Vomiting Other/Special Instructions: 1. Followup with your regular provider in 7-10 days as directed for reevaluation and recommended repeat CBC and comprehensive metabolic panel. Bring these discharge instructions with you to that visit. 2. [place] diet including encouragement of oral fluids such as sports drinks, etc. for 24-48 hours as directed. Advance to heart healthy diet as tolerated thereafter. 3. Immediately after this visit verify that your cellular telephone's voicemail has been activated and is empty. Also verify that your home telephone's answering machine is operating properly and has space to receive messages. Note that it is sometimes necessary for us to be able to contact you at a later date to discuss your medical care. 4. Please remember that we are ALWAYS here for you and want to answer any questions you may have. Feel free to call the hospital any time and we call you back KELLEY. - Discharge Plan *PRESCRIPTION DRUG MONITORING PROGRAM REVIEWED*: Not Applicable *COPY OF PRESCRIPTION DRUG MONITORING REPORT IN PATIENT JONATAN: Not Applicable Prescriptions/Med Rec: Lactobacillus Rhamnosus GG [Culturelle] 2 cap PO TID #30 cap Home Medications: Home Meds Anastrozole [Arimidex] 1 mg PO DAILY 10/20/15 [History] Alendronate Sodium [Fosamax] 70 mg PO WEEKLY 07/16/18 [History] Citalopram Hydrobromide [Celexa] 20 mg PO DAILY 07/16/18 [History] Acetaminophen [Tylenol] 650 mg PO Q4H PRN tablet 07/18/18 [Rx] Lactobacillus Rhamnosus GG [Culturelle] 2 cap PO TID #30 cap 07/18/18 [Rx] Oxygen Therapy Mode: Room Air Patient Handouts: Colonoscopy, Adult, [id number], Esophagogastroduodenoscopy , Colonoscopy, Adult, Care After, [id number], Ceftriaxone injection, Gastrointestinal Bleeding, [id number], Esophagogastroduodenoscopy, Care After , Metronidazole injection Forms: ED Department Discharge Referrals: Tamika Romero, [employer] [Primary Care Provider] - - Discharge Summary/Plan Comment DC Time >30 min.: Yes (Coordination of care ) Discharge Summary/Plan Comment: As above. Extensive precautions were given to the patient, who is in agreement with the treatment plan. See Patient Instructions for further treatment and plan. - General Info Date of Service: 07/18/18 Admission Dx/Problem (Free Text: Lower GI bleed Functional Status: Reports: Pain Controlled, Tolerating Diet, Ambulating, Urinating. Denies: New Symptoms, Incentive Spirometry Numeric/FACES Score: 0 - Review of Systems General: Reports: No Symptoms. Denies: Fever, Weakness, Fatigue, Malaise, Night Sweats, Appetite (Appetite good) HEENT: Reports: No Symptoms. Denies: Ear Pain, Eye Pain, Headaches, Post Nasal Drip, Sinus Congestion, Sore Throat, Rhinitis, Visual Changes Pulmonary: Reports: No Symptoms. Denies: Shortness of Breath, Pleuritic Chest Pain, Cough, Sputum, Hemoptysis, Wheezing Cardiovascular: Reports: No Symptoms. Denies: Chest Pain, Palpitations, Dyspnea on Exertion, Orthopnea, PND, Edema, Lightheadedness Gastrointestinal: Reports: No Symptoms. Denies: Abdominal Pain, Constipation, Decreased Appetite, Diarrhea, Difficulty Swallowing, Flatus, Hematochezia, Melena, Nausea, Vomiting Genitourinary: Reports: No Symptoms. Denies: Dysuria, Frequency, Urgency, Incontinence, Hematuria, Retention, Flank Pain Musculoskeletal: Reports: No Symptoms. Denies: Neck Pain, Shoulder Pain, Arm Pain, Back Pain, Leg Pain Skin: Reports: No Symptoms. Denies: Cyanosis, Jaundice, Diaphoresis, Bruising, Rash Neurological: Reports: No Symptoms. Denies: Confusion, Dizziness, Numbness, Paresthesia, Tingling, Weakness Psychiatric: Reports: No Symptoms. Denies: Confusion, Depression, Anxiety, Agitation, Hallucinations - Patient Data Vitals - Most Recent: Last Vital Signs Temp 36.8 C 07/18/18 06:00 Pulse 78 07/18/18 06:00 Resp 16 07/18/18 06:00 BP 113/68 07/18/18 06:00 Pulse Ox 99 07/18/18 06:00 Vital Signs - 24 hr 07/17/18 07/17/18 07/17/18 12:00 12:10 12:20 Temperature [ 36.2 C 36.4 C 36.5 C Oral] Temperature [ Temporal] Pulse, 97 68 67 Peripheral [ Pulse Oximetry] Respiratory 16 16 16 Rate Blood Pressure 117/71 118/56 L 114/56 L [Left Upper Arm ] O2 Sat by Pulse 97 98 100 Oximetry 07/17/18 07/18/18 07/18/18 16:00 00:00 06:00 Temperature [ 36.8 C Oral] Temperature [ 36.5 C 36.3 C Temporal] Pulse, 63 66 78 Peripheral [ Pulse Oximetry] Respiratory 17 16 16 Rate Blood Pressure 126/80 102/65 113/68 [Left Upper Arm ] O2 Sat by Pulse 100 97 99 Oximetry Weight - Most Recent: 70.216 kg I&O - Last 24 hours: Intake & Output 07/17/18 07/18/18 07/18/18 22:59 06:59 14:59 Intake Total 2900 500 Output Total 1700 500 900 Balance 1200 0 -900 Imaging Impressions - Last 24 hrs: Acute abdominal x-rays 07/18/17 were normal with exception of mild increased nonspecific bowel gaseous pattern with no cardiomegaly, CHF, pulmonary infiltrates, pneumothorax, free air, ileus, obstruction, etc. Telephone consultation at 09:55 AM on 07/16/18 with the radiology department at [facility] in [place]. Preliminary verbal report shows no evidence of acute abnormalities or etiology of her probable lower GI bleed. Final report received prior to admission. 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 Lab Results - Last 24 hrs: Laboratory Results - last 24 hr 07/18/18 07/18/18 07/18/18 Range/Units 07:05 07:05 07:05 WBC 3.9 L (4.0-10.2) K/uL RBC 3.96 (3.77-5.09) M/uL Hgb 13.1 (11.7-15.5) g/dL Hct 37.3 (34.0-46.0) % MCV 94.2 (84.0-98.0) fL MCH 33.1 (28.2-33.3) pg MCHC 35.1 (31.7-36.0) g/dL RDW 12.1 (11.2-14.1) % Plt Count 122 L (150-350) K/uL Neut % (Auto) 67.1 (45.0-80.0) % Lymph % (Auto) 20.8 (10.0-50.0) % [place] % (Auto) 9.5 (2.0-14.0) % Eos % (Auto) 2.1 (0.0-5.0) % Baso % (Auto) 0.5 (0.0-2.0) % Neut # (Auto) 2.62 (1.40-7.00) K/uL Lymph # (Auto) 0.81 (0.50-3.50) K/uL [place] # (Auto) 0.37 (0.00-1.00) K/uL Eos # (Auto) 0.08 (0.00-0.50) K/uL Baso # (Auto) 0.02 (0.00-0.20) K/uL PT 10.6 (9.5-12.0) SEC INR 1.0 APTT 25.7 (21.0-31.3) SEC Sodium 141 (136-145) mmol/L Potassium 3.6 (3.5-5.1) mmol/L Chloride 104 (98-107) mmol/L Carbon Dioxide 27.2 (21.0-32.0) mmol/L BUN 7 (7-18) mg/dL Creatinine 0.82 (0.51-1.17) mg/dL Est Cr Clr Drug Dosing 68.65 mL/min Estimated GFR (MDRD) > 60 mL/min Glucose 99 (74-106) mg/dL Calcium 9.1 (8.5-10.1) mg/dL Total Bilirubin 0.6 (0.2-1.0) mg/dL AST 36 (15-37) U/L ALT 69 (12-78) U/L Alkaline Phosphatase 102 (46-116) IU/L Total Protein 6.7 (6.4-8.2) g/dL Albumin 3.7 (3.4-5.0) g/dL Laboratory Tests 07/16/18 07/16/18 07/16/18 Range/Units 08:39 08:40 08:40 WBC 7.2 (4.0-10.2) K/uL RBC 4.41 (3.77-5.09) M/uL Hgb 14.5 (11.7-15.5) g/dL Hct 40.8 (34.0-46.0) % MCV 92.5 (84.0-98.0) fL MCH 32.9 (28.2-33.3) pg MCHC 35.5 (31.7-36.0) g/dL RDW 12.3 (11.2-14.1) % Plt Count 116 L (150-350) K/uL Neut % (Auto) 85.5 H (45.0-80.0) % Lymph % (Auto) 5.5 L (10.0-50.0) % Morrison % (Auto) 8.4 (2.0-14.0) % Eos % (Auto) 0.6 (0.0-5.0) % Baso % (Auto) 0.0 (0.0-2.0) % Neut # (Auto) 6.19 (1.40-7.00) K/uL Lymph # (Auto) 0.40 L (0.50-3.50) K/uL Morrison # (Auto) 0.61 (0.00-1.00) K/uL Eos # (Auto) 0.04 (0.00-0.50) K/uL Baso # (Auto) 0.00 (0.00-0.20) K/uL PT 10.0 (9.5-12.0) SEC INR 0.9 APTT 23.4 (21.0-31.3) SEC Sodium (136-145) mmol/L Potassium (3.5-5.1) mmol/L Chloride (98-107) mmol/L Carbon Dioxide (21.0-32.0) mmol/L BUN (7-18) mg/dL Creatinine (0.51-1.17) mg/dL Est Cr Clr Drug Dosing mL/min Estimated GFR (MDRD) mL/min Glucose (74-106) mg/dL Lactic Acid (0.4-2.0) mmol/L Uric Acid (2.6-7.2) mg/dL Calcium (8.5-10.1) mg/dL Magnesium (1.8-2.4) mg/dL Total Bilirubin (0.2-1.0) mg/dL AST (15-37) U/L ALT (12-78) U/L Alkaline Phosphatase (46-116) IU/L Total Protein (6.4-8.2) g/dL Albumin (3.4-5.0) g/dL Amylase 57 (25-115) U/L Lipase (73-393) U/L Specimen Type Urine Color Urine Appearance Urine pH (5.0-9.0) Ur Specific [place] (1.005-1.030) Urine Protein (NEGATIVE) mg/dL Urine Glucose (UA) (NEGATIVE) mg/dL Urine Ketones (NEGATIVE) mg/dL Urine Occult Blood (NEGATIVE) Urine Nitrite (NEGATIVE) Urine Bilirubin (NEGATIVE) Urine Urobilinogen (0.2-1.0) E.U./dL Ur Leukocyte Esterase (NEGATIVE) Urine RBC /HPF Urine WBC /HPF Ur Epithelial Cells /LPF Urine Bacteria (NONE TO FEW) /HPF 07/16/18 07/16/18 07/16/18 Range/Units 08:40 08:40 13:03 WBC (4.0-10.2) K/uL RBC (3.77-5.09) M/uL Hgb (11.7-15.5) g/dL Hct (34.0-46.0) % MCV (84.0-98.0) fL MCH (28.2-33.3) pg MCHC (31.7-36.0) g/dL RDW (11.2-14.1) % Plt Count (150-350) K/uL Neut % (Auto) (45.0-80.0) % Lymph % (Auto) (10.0-50.0) % Morrison % (Auto) (2.0-14.0) % Eos % (Auto) (0.0-5.0) % Baso % (Auto) (0.0-2.0) % Neut # (Auto) (1.40-7.00) K/uL Lymph # (Auto) (0.50-3.50) K/uL [place] # (Auto) (0.00-1.00) K/uL Eos # (Auto) (0.00-0.50) K/uL Baso # (Auto) (0.00-0.20) K/uL PT (9.5-12.0) SEC INR APTT (21.0-31.3) SEC Sodium 139 (136-145) mmol/L Potassium 4.2 (3.5-5.1) mmol/L Chloride 102 (98-107) mmol/L Carbon Dioxide 25.1 (21.0-32.0) mmol/L BUN 17 (7-18) mg/dL Creatinine 0.81 (0.51-1.17) mg/dL Est Cr Clr Drug Dosing 69.50 mL/min Estimated GFR (MDRD) > 60 mL/min Glucose 116 H (74-106) mg/dL Lactic Acid 1.4 (0.4-2.0) mmol/L Uric Acid 4.3 (2.6-7.2) mg/dL Calcium 9.1 (8.5-10.1) mg/dL Magnesium 1.9 (1.8-2.4) mg/dL Total Bilirubin 0.9 (0.2-1.0) mg/dL AST 31 (15-37) U/L ALT 56 (12-78) U/L Alkaline Phosphatase 120 H (46-116) IU/L Total Protein 7.5 (6.4-8.2) g/dL Albumin 4.3 (3.4-5.0) g/dL Amylase (25-115) U/L Lipase 168 (73-393) U/L Specimen Type Urinvoid Urine Color Yellow Urine Appearance Clear Urine pH 7.0 (5.0-9.0) Ur Specific [place] 1.015 (1.005-1.030) Urine Protein Negative (NEGATIVE) mg/dL Urine Glucose (UA) Negative (NEGATIVE) mg/dL Urine Ketones Negative (NEGATIVE) mg/dL Urine Occult Blood Small H (NEGATIVE) Urine Nitrite Negative (NEGATIVE) Urine Bilirubin Negative (NEGATIVE) Urine Urobilinogen 0.2 (0.2-1.0) E.U./dL Ur Leukocyte Esterase Negative (NEGATIVE) Urine RBC 0-5 /HPF Urine WBC Not seen /HPF Ur Epithelial Cells Rare /LPF Urine Bacteria Rare (NONE TO FEW) /HPF 07/16/18 07/17/18 07/17/18 Range/Units 14:05 07:10 07:10 WBC 5.4 3.6 L (4.0-10.2) K/uL RBC 4.02 3.80 (3.77-5.09) M/uL Hgb 13.3 12.5 (11.7-15.5) g/dL Hct 37.4 36.1 (34.0-46.0) % MCV 93.0 95.0 (84.0-98.0) fL MCH 33.1 32.9 (28.2-33.3) pg MCHC 35.6 34.6 (31.7-36.0) g/dL RDW 12.1 12.3 (11.2-14.1) % Plt Count 130 L 112 L (150-350) K/uL Neut % (Auto) 77.1 63.6 (45.0-80.0) % Lymph % (Auto) 10.4 23.2 (10.0-50.0) % [place] % (Auto) 11.2 10.1 (2.0-14.0) % Eos % (Auto) 1.1 2.8 (0.0-5.0) % Baso % (Auto) 0.2 0.3 (0.0-2.0) % Neut # (Auto) 4.13 2.27 (1.40-7.00) K/uL Lymph # (Auto) 0.56 0.83 (0.50-3.50) K/uL [place] # (Auto) 0.60 0.36 (0.00-1.00) K/uL Eos # (Auto) 0.06 0.10 (0.00-0.50) K/uL Baso # (Auto) 0.01 0.01 (0.00-0.20) K/uL PT (9.5-12.0) SEC INR APTT (21.0-31.3) SEC Sodium 141 (136-145) mmol/L Potassium 4.1 (3.5-5.1) mmol/L Chloride 107 (98-107) mmol/L Carbon Dioxide 26.6 (21.0-32.0) mmol/L BUN 7 (7-18) mg/dL Creatinine 0.78 (0.51-1.17) mg/dL Est Cr Clr Drug Dosing 72.17 mL/min Estimated GFR (MDRD) > 60 mL/min Glucose 111 H (74-106) mg/dL Lactic Acid (0.4-2.0) mmol/L Uric Acid (2.6-7.2) mg/dL Calcium 8.5 (8.5-10.1) mg/dL Magnesium (1.8-2.4) mg/dL Total Bilirubin 0.5 (0.2-1.0) mg/dL AST 60 H (15-37) U/L ALT 80 H (12-78) U/L Alkaline Phosphatase 100 (46-116) IU/L Total Protein 6.2 L (6.4-8.2) g/dL Albumin 3.4 (3.4-5.0) g/dL Amylase (25-115) U/L Lipase (73-393) U/L Specimen Type Urine Color Urine Appearance Urine pH (5.0-9.0) Ur Specific [place] (1.005-1.030) Urine Protein (NEGATIVE) mg/dL Urine Glucose (UA) (NEGATIVE) mg/dL Urine Ketones (NEGATIVE) mg/dL Urine Occult Blood (NEGATIVE) Urine Nitrite (NEGATIVE) Urine Bilirubin (NEGATIVE) Urine Urobilinogen (0.2-1.0) E.U./dL Ur Leukocyte Esterase (NEGATIVE) Urine RBC /HPF Urine WBC /HPF Ur Epithelial Cells /LPF Urine Bacteria (NONE TO FEW) /HPF 07/18/18 07/18/18 07/18/18 Range/Units 07:05 07:05 07:05 WBC 3.9 L (4.0-10.2) K/uL RBC 3.96 (3.77-5.09) M/uL Hgb 13.1 (11.7-15.5) g/dL Hct 37.3 (34.0-46.0) % MCV 94.2 (84.0-98.0) fL MCH 33.1 (28.2-33.3) pg MCHC 35.1 (31.7-36.0) g/dL RDW 12.1 (11.2-14.1) % Plt Count 122 L (150-350) K/uL Neut % (Auto) 67.1 (45.0-80.0) % Lymph % (Auto) 20.8 (10.0-50.0) % [place] % (Auto) 9.5 (2.0-14.0) % Eos % (Auto) 2.1 (0.0-5.0) % Baso % (Auto) 0.5 (0.0-2.0) % Neut # (Auto) 2.62 (1.40-7.00) K/uL Lymph # (Auto) 0.81 (0.50-3.50) K/uL [place] # (Auto) 0.37 (0.00-1.00) K/uL Eos # (Auto) 0.08 (0.00-0.50) K/uL Baso # (Auto) 0.02 (0.00-0.20) K/uL PT 10.6 (9.5-12.0) SEC INR 1.0 APTT 25.7 (21.0-31.3) SEC Sodium 141 (136-145) mmol/L Potassium 3.6 (3.5-5.1) mmol/L Chloride 104 (98-107) mmol/L Carbon Dioxide 27.2 (21.0-32.0) mmol/L BUN 7 (7-18) mg/dL Creatinine 0.82 (0.51-1.17) mg/dL Est Cr Clr Drug Dosing 68.65 mL/min Estimated GFR (MDRD) > 60 mL/min Glucose 99 (74-106) mg/dL Lactic Acid (0.4-2.0) mmol/L Uric Acid (2.6-7.2) mg/dL Calcium 9.1 (8.5-10.1) mg/dL Magnesium (1.8-2.4) mg/dL Total Bilirubin 0.6 (0.2-1.0) mg/dL AST 36 (15-37) U/L ALT 69 (12-78) U/L Alkaline Phosphatase 102 (46-116) IU/L Total Protein 6.7 (6.4-8.2) g/dL Albumin 3.7 (3.4-5.0) g/dL Amylase (25-115) U/L Lipase (73-393) U/L Specimen Type Urine Color Urine Appearance Urine pH (5.0-9.0) Ur Specific [place] (1.005-1.030) Urine Protein (NEGATIVE) mg/dL Urine Glucose (UA) (NEGATIVE) mg/dL Urine Ketones (NEGATIVE) mg/dL Urine Occult Blood (NEGATIVE) Urine Nitrite (NEGATIVE) Urine Bilirubin (NEGATIVE) Urine Urobilinogen (0.2-1.0) E.U./dL Ur Leukocyte Esterase (NEGATIVE) Urine RBC /HPF Urine WBC /HPF Ur Epithelial Cells /LPF Urine Bacteria (NONE TO FEW) /HPF REINA Results - Last 24 hrs: Microbiology 07/16/18 13:03 Urine Culture - Final Urine, Voided NO GROWTH AFTER 2 DAYS 07/16/18 15:15 Clostridioides difficile (PCR) - Final Stool / Feces 07/16/18 15:15 Helicobacter pylori Antigen - Final Stool / Feces Hemoccult positive H. pylori antigen and C. difficile results are negative Med Orders - Current: Current Medications Acetaminophen (Tylenol) 650 mg PO Q4H PRN PRN Reason: Pain Last Admin: 07/17/18 21:33 Dose: 650 mg Anastrozole (Arimidex) 1 mg PO DAILY [facility] Last Admin: 07/18/18 09:12 Dose: 1 mg Citalopram Hydrobromide (Celexa) 20 mg PO DAILY [facility] Last Admin: 07/18/18 09:11 Dose: 20 mg Famotidine (Pepcid) 20 mg IVPUSH Q12H [facility] Last Admin: 07/18/18 09:14 Dose: 20 mg Metronidazole 500 mg/ Premix 100 mls @ 100 mls/hr IV Q8H [facility] Last Admin: 07/18/18 06:07 Dose: 100 mls/hr Lactobacillus Rhamnosus (Culturelle) 2 cap PO TID [facility] Last Admin: 07/18/18 09:12 Dose: 2 cap Ondansetron HCl (Zofran) 4 mg IVPUSH Q6H PRN PRN Reason: Nausea/Vomiting Last Admin: 07/16/18 19:15 Dose: 4 mg Pantoprazole Sodium (Protonix Iv) 40 mg IVPUSH Q12H [facility] Last Admin: 07/18/18 09:14 Dose: 40 mg Sodium Chloride (Saline Flush) 10 ml FLUSH ASDIRECTED PRN PRN Reason: Keep Vein Open Last Admin: 07/18/18 06:07 Dose: 10 ml Sodium Chloride (Saline Flush) 10 ml FLUSH Q12HR [facility] Last Admin: 07/18/18 09:14 Dose: 10 ml Sodium Chloride (Saline Flush) 10 ml FLUSH Q12HR [facility] Last Admin: 07/18/18 09:15 Dose: 10 ml Temazepam (Restoril) 15 mg PO DAILY@2000 PRN PRN Reason: Insomnia Discontinued Medications Bisacodyl (Dulcolax) 10 mg PO ONETIME ONE Stop: 07/16/18 12:01 Last Admin: 07/16/18 12:46 Dose: 10 mg Famotidine (Pepcid) 40 mg IVPUSH ONETIME ONE Stop: 07/16/18 08:39 Last Admin: 07/16/18 09:39 Dose: 40 mg Fentanyl (Sublimaze) Confirm Administered Dose 100 mcg .ROUTE .STK-MED ONE Stop: 07/17/18 11:11 Last Admin: 07/17/18 12:29 Dose: Not Given Ceftriaxone Sodium 1 gm/ (Sodium Chloride) 100 mls @ 200 mls/hr IV ONETIME ONE Stop: 07/16/18 09:07 Last Admin: 07/16/18 09:32 Dose: 200 mls/hr Lactated Ringer's (Ringers, Lactated) 1,000 mls @ 999 mls/hr IV .BOLUS ONE Stop: 07/16/18 09:38 Last Admin: 07/16/18 09:36 Dose: 999 mls/hr Metronidazole 500 mg/ Premix 100 mls @ 100 mls/hr IV ONETIME ONE Stop: 07/16/18 09:37 Last Admin: 07/16/18 09:40 Dose: 100 mls/hr Ceftriaxone Sodium 1 gm/ (Sodium Chloride) 100 mls @ 200 mls/hr IV Q12H [facility] Last Admin: 07/17/18 09:53 Dose: 200 mls/hr Metronidazole 500 mg/ Premix 100 mls @ 100 mls/hr IV Q8H [facility] Lactated Ringer's (Ringers, Lactated) 1,000 mls @ 100 mls/hr IV ASDIRECTED [facility] Last Admin: 07/17/18 12:24 Dose: 100 mls/hr Iopamidol (Isovue-300 (61%)) 100 ml IVPUSH ONETIME ONE Stop: 07/16/18 09:31 Last Admin: 07/16/18 09:16 Dose: 100 ml Midazolam HCl (Versed 1 Mg/Ml) Confirm Administered Dose 4 mg .ROUTE .STK-MED ONE Stop: 07/17/18 11:11 Last Admin: 07/17/18 12:28 Dose: Not Given Ondansetron HCl (Zofran) 4 mg IVPUSH ONETIME ONE Stop: 07/16/18 08:39 Last Admin: 07/16/18 09:41 Dose: Not Given Pantoprazole Sodium (Protonix Iv) 40 mg IVPUSH ONETIME ONE Stop: 07/16/18 08:39 Last Admin: 07/16/18 09:35 Dose: 40 mg Polyethylene Glycol (Miralax) 238 gm PO Q30M [facility] Stop: 07/16/18 16:31 Last Admin: 07/16/18 16:08 Dose: 1 dose Potassium Chloride (Klor-Con M20) 20 meq PO TID [facility] Stop: 07/17/18 12:00 Last Admin: 07/17/18 13:33 Dose: Not Given Propofol (Diprivan 20 Ml) Confirm Administered Dose 200 mg .ROUTE .STK-MED ONE Stop: 07/17/18 11:11 Last Admin: 07/17/18 12:29 Dose: Not Given Sodium Chloride (Saline Flush) 10 ml FLUSH ASDIRECTED PRN PRN Reason: Keep Vein Open Last Admin: 07/16/18 09:36 Dose: 10 ml - Exam Quality Assessment: Reports: DVT Prophylaxis. Denies: Supplemental Oxygen, Central Line/PICC, Urine Catheter, Skin Breakdown General: Reports: Alert, Oriented, Cooperative, No Acute Distress HEENT: Reports: Pupils Equal, Pupils Reactive, EOMI, Mucous Membr. Moist/[place] Neck: Reports: Supple, Trachea Midline, No JVD, No Thyromegaly, +2 Carotid Pulse wo Bruit Lungs: Reports: Clear to Auscultation, Normal Respiratory Effort. Denies: Rub Cardiovascular: Reports: Regular Rate, Regular Rhythm. Denies: Tachycardia, Gallops, Rubs GI/Abdominal Exam: Normal Bowel Sounds, Soft, Non-Tender, No Organomegaly, No Distention, No Abnormal Bruit, No Mass, Pelvis Stable. No: Guarding (Female) Exam: Deferred Rectal (Female) Exam: Deferred Back Exam: Reports: Normal Inspection, Full Range of Motion. Denies: CVA Tenderness (L), CVA Tenderness (R), Muscle Spasm Extremities: Normal Inspection, Normal Range of Motion, Non-Tender, No Pedal Edema, Normal Capillary Refill. No: Saw's Sign Skin: Reports: Warm, Dry, Intact. Denies: Rash, Ecchymosis Neurological: Reports: No New Focal Deficit Psy/Mental Status: Reports: Alert, Normal Affect, Normal Mood
== END 2018-07-18 14:00 | disposition home or self-care (01) ==
LOC: LL.ED 08:10 → LL.MS 10:26
PROVIDERS: ADMIT Family Medicine; ATTEND Family Medicine
DX: K52.9 Noninfective gastroenteritis and colitis, unspecified (principal); K64.9 Unspecified hemorrhoids; K21.9 Gastro-esophageal reflux disease without esophagitis; C50.211 Malignant neoplasm of upper-inner quadrant of right female breast; Z17.0 Estrogen receptor positive status [ER+]; F41.8 Other specified anxiety disorders; R94.5 Abnormal results of liver function studies; E78.00 Pure hypercholesterolemia, unspecified; E66.9 Obesity, unspecified
CPT/HCPCS: 00813; 36415; 74022; 74177; 80053; 81001; 82150; 82272; 83605; 83690; 83735; 84550; 85025; 85610; 85730; 87045; 87046; 87086; 87338; 87493; 87899; 93005; 96361; 96365; 96366; 96367; 96374; 96375; 96376; 99285-25; A9270-GY; C9113; G0378; J0696; J2001; J2250; J2405; J2704; J3010; J3490; J7050; J7120; Q9967